=== PATIENT | female | born 2005 | race Caucasian/White ===

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

== ENCOUNTER 2023-01-02 18:12 | Emergency (ER) | payer OTHER, SELFPAY ==
[2023-01-02 18:20] VITALS: BP 138/79; PULSE 127; RESP 20; TEMP 37.4; O2SAT 100
--- NOTE | 2023-01-02 18:42 | ED.GENADULT ---
HPI - General Adult General Chief complaint: Dizziness Stated complaint: Dizzy spells History of Present Illness HPI narrative: Patient presents with a history of anxiety and has have been trouble with anxiety the last 2 days. Patient states she was on medication while she was but she stopped taking it at the end of her . Patient denies any intentions to hurt herself no shortness of breath no chest pain. Related Data Home Medications Medication Instructions Recorded Confirmed norethindrone 1.5 mg-ethinyl See Rx Instructions .Route .COMPLEX 01/02/23 01/02/23 estradiol 30 mcg(21)/iron 75 mg(7) tablet (Keiko Fe 1.5/30 (28)) Allergies Allergy/AdvReac Type Severity Reaction Status Date / Time No Known Allergies Allergy Verified 01/02/23 18:39 Review of Systems Review of Systems: CONSTITUTIONAL: Denies fever, chills, or sweats. EYES: Denies visual changes, redness, or discharge. ENT: Denies rhinorrhea, congestion, sore throat, or otalgia. CARDIOVASCULAR: Denies chest pain, palpitations, or edema. RESPIRATORY: Denies cough or dyspnea. GASTROINTESTINAL: Denies abdominal pain, nausea, vomiting, or diarrhea. GENITOURINARY: Denies dysuria or hematuria. SKIN: Denies rash or itching. MUSCULOSKELETAL: Denies back pain, joint pain, or myalgia. NEUROLOGIC: Denies headache, numbness, or weakness. PSYCHIATRIC: Denies anxiety or depression. [facility] Past Medical History Medical History (Updated 01/02/23 @ 18:44 by YOVANA Lazaro) No acute medical problems Surgical History Surgical History No pertinent past surgical history Family History Family History Mother Family history non-contributory Other No acute medical problems Social History Social History (Updated 10/11/21 @ 18:54 by YOVANA Rhodes, ) Smoking status: Never smoker Second hand tobacco smoke exposure: No Alcohol intake: never Substance use: never Living arrangements: with family Gender identity (if verbalized by the patient): Female Sexual Orientation (if Verbalized by the Patient): Straight or Heterosexual Spiritual care concerns: Yes (Would like to have element burner visit) Comments At time of signature, agree with nursing past medical, surgical, social and family history. There is no relevant family history pertinent to the presenting complaint Exam Narrative: GENERAL: Well-appearing, well-nourished, and in no acute distress. HEAD: Normocephalic, atraumatic. EYES: PERRLA and EOMI. ENT: Nares clear, no rhinorrhea or epistaxis. Mucous membranes moist. NECK: Supple. CHEST: Clear to auscultation. No respiratory distress. HEART: Regular rate and rhythm. No murmur heard. Normal peripheral pulses. ABDOMEN: Soft, nontender, nondistended, normal active bowel sounds. EXTREMITIES: Normal range of motion. No edema. SKIN: Warm, dry, no rash. NEURO: No focal deficits. Alert and oriented x3. Deanna Coma Scale Eye Opening: Spontaneous 4 Deanna Coma Scale Motor: Obeys Commands 6 Deanna Coma Scale Verbal: Oriented 5 Deanna Coma Scale Total 15 Course Course Level of Care: Express Care Visit Vital Signs Vital signs: Vital Signs Temperature 37.4 C 01/02/23 18:20 Pulse Rate 127 H 01/02/23 18:20 Respiratory Rate 01/02/23 18:20 Blood Pressure 138/79 01/02/23 18:20 Pulse Oximetry 100 01/02/23 18:20 Oxygen Delivery Room Air 01/02/23 18:20 Temperature 37.4 C 01/02/23 18:20 Pulse Rate 127 H 01/02/23 18:20 Respiratory Rate 01/02/23 18:20 Blood Pressure 138/79 01/02/23 18:20 Pulse Oximetry 100 01/02/23 18:20 Oxygen Delivery Room Air 01/02/23 18:20 Medical Decision Making Vital Signs Vital Signs: Vital Signs Temperature 37.4 C 01/02/23 18:20 Pulse Rate 127 H 01/02/23 18:20 Respiratory Rate 01/02/23 18:20
== END 2023-01-02 18:20 | disposition home or self-care (01) ==
PROVIDERS: Emergency Provider Nurse Practitioner Family
DX: F41.9 Anxiety disorder, unspecified (principal)
CPT/HCPCS: 99213; G0463

== ENCOUNTER 2023-01-08 16:50 | Emergency (ER) | payer OTHER, SELFPAY ==
[2023-01-08 16:56] VITALS: BP 130/71; PULSE 108; RESP 18; TEMP 36.6; O2SAT 96
--- NOTE | 2023-01-08 17:15 | ED.EAR ---
HPI - Ear Problem General Chief complaint: Ear Stated complaint: Ear pain Time Seen by Provider: 01/08/23 17:05 Source: patient, RN notes reviewed and old records reviewed Mode of arrival: ambulatory Limitations: no limitations History of Present Illness HPI Narrative: 17 year old female accompanied by mother and daughter with complaints of intermittent left ear pain since yesterday, Patient reports no sinus congestion, sore throat,or cough or any other URI symptoms, denies any recent swimming or any ear discharge. Patient rates her pain 3/10 has not taken any OTC medication for her discomfort. Patient reports no known recent ill exposure. MD Complaint: ear pain Location: left ear Duration: intermittent Severity: mild Discharge from ear: Reports no Treatment prior to arrival: none Related Data Home Medications Medication Instructions Recorded Confirmed norethindrone 1.5 mg-ethinyl See Rx Instructions .Route .COMPLEX 01/02/23 01/02/23 estradiol 30 mcg(21)/iron 75 mg(7) tablet (Keiko Fe 1.5/30 (28)) Allergies Allergy/AdvReac Type Severity Reaction Status Date / Time No Known Allergies Allergy Verified 01/02/23 18:39 Review of Systems Review of Systems: CONSTITUTIONAL: Denies malaise, chills, sweats, or fever. EYES: Denies visual changes, redness, or discharge. ENT: Reports no rhinorrhea, congestion, sinus pain,positive for left otalgia no sore throat. CARDIOVASCULAR: Denies chest pain, palpitations, or edema. RESPIRATORY: Reports cough.? Denies dyspnea. GASTROINTESTINAL: Denies abdominal pain, nausea, vomiting, diarrhea SKIN: Denies rash or itching. MUSCULOSKELETAL: Denies myalgia. NEUROLOGIC: Denies headache. All systems reviewed & are unremarkable except as noted in HPI and below PMFSH Past Medical History Medical History (Updated 01/09/23 @ 10:08 by Meseert Jordan NP) Anxiety COVID-19 Ear infection Strep throat Surgical History Surgical History No pertinent past surgical history Family History Family History (Updated 01/09/23 @ 09:59 by Meseret Jordan NP) Mother Kidney disease, chronic, end stage on dialysis Social History Social History (Updated 10/11/21 @ 18:54 by Tray Irizarry, [facility], ) Smoking status: Never smoker Second hand tobacco smoke exposure: No Alcohol intake: never Substance use: never Living arrangements: with family Gender identity (if verbalized by the patient): Female Sexual Orientation (if Verbalized by the Patient): Straight or Heterosexual Spiritual care concerns: Yes (Would like to have eyeglass lens grinder visit) Comments At time of signature, agree with nursing past medical, surgical, social and family history. There is no relevant family history pertinent to the presenting complaint Exam Narrative: GENERAL: Well-appearing, well-nourished, and in no acute distress. HEAD: Normocephalic EYES: PERRLA, conjunctivae clear ENT: Nares clear, turbinates edematous and erythematous, clear discharge. Mucous membranes moist Left TM red and bulging..Right TM pearly freedman with dull light reflex bilaterally; no tragal tenderness. Oropharynx erythematous without lesions. Tonsils not enlarged and without exudate, no drooling, no hoarseness, no trismus, uvula midline. NECK: Supple. No lymphadenopathy CHEST: Clear to auscultation, breath sounds equal. No wheezing, rhonchi, rales, or stridor. No respiratory distress, speaks in full sentences.SAO2 96% on room air HEART: Regular rate and rhythm. No murmur heard. SKIN: Warm, dry, no rash. NEURO: Alert and oriented x3. PSYCH: Normal mood and affect Course Course Emergency Course: Patient is aware of diagnosis, understands and agrees to treatment plan.? Anticipatory guidance given.? Patient agrees to follow-up as directed and is aware of reasons to seek care at the emergency department. Portions of this femi
== END 2023-01-08 17:26 | disposition home or self-care (01) ==
PROVIDERS: Emergency Provider Registered Nurse; PCP Family Medicine
DX: H66.92 Otitis media, unspecified, left ear (principal); Z86.16 Personal history of COVID-19
CPT/HCPCS: 99213; G0463

== ENCOUNTER 2023-01-25 14:21 | Outpatient (CLI) | payer OTHER, SELFPAY ==
[2023-01-25 19:23] LABS: Hematocrit 43.2 % (37.0-47.0); Hemoglobin 13.9 g/dL (12.0-15.0); Mean Corpuscular HGB Conc 32.2 g/dl (32-36); Mean Corpuscular Hemoglobin 29.4 pg (26-34); Mean Corpuscular Volume 91.3 fl (80-100); Platelet Count Result 268 k/mm3 (150-375); Red Blood Count 4.73 M/mm3 (4.2-5.4); Red Cell Distribution Width 13.2 % (11.5-14.5); White Blood Count 5.4 K/mm3 (4.5-10.0)
[2023-01-25 19:52] LABS: Alanine Aminotransferase 22 U/L (6-35); Albumin Level 4.7 g/dL (3.7-5.6); Alkaline Phosphatase 62 U/L (45-116); Anion Gap 9 mmol/L (8-16); Aspartate Amino Transferase 46 U/L (14-36); Bilirubin,Total 0.4 mg/dL (0.2-1.3); Blood Urea Nitrogen 16 mg/dL (8-21); Calcium 9.6 mg/dL (8.9-10.7); Carbon Dioxide 26 mmol/L (22-30); Chloride 105 mmol/L (98-107); Estimated Glomerular Filt Rate > 60; Glucose 81 mg/dL (65-110); Potassium 4.3 mmol/L (3.4-5.0); Sodium 140 mmol/L (134-143)
== END 2023-01-25 14:22 | disposition home or self-care (01) ==
LOC: ANHBWCLAB 14:23
PROVIDERS: PCP Nurse Practitioner Adult Health; Visit Provider Nurse Practitioner Adult Health
DX: D64.9 Anemia, unspecified (principal); F41.9 Anxiety disorder, unspecified
CPT/HCPCS: 36415; 80053; 84443; 85027

== ENCOUNTER 2023-02-08 16:01 | Emergency (ER) | payer OTHER, SELFPAY ==
[2023-02-08 16:06] VITALS: BP 129/74; PULSE 86; RESP 20; TEMP 37; O2SAT 100
--- NOTE | 2023-02-08 16:38 | ED.ABDPAIN ---
HPI - Abdominal Pain General Chief Complaint: Abdominal Pain Stated Complaint: Flank Pain Time Seen by Provider: 02/08/23 16:39 Source: patient Mode of arrival: ambulatory Limitations: no limitations History of Present Illness HPI narrative: 17 yo F presents with c/o anxiety, upset stomach for pain several days. Pt recently started buspar, prozac for anxiety. States medications were helping. Now going through somethings with fiance and having a lot of anxiety again . States when she is anxious sides of ABD hurt. No abdominal pain at this time. Want to make sure my breathing is ok . Deneis SOB. No URI symptoms. Denies urinary symptoms. Having normal BMs. All systems reviewed and negative except as noted above. Related Data Home Medications Medication Instructions Recorded Confirmed norethindrone 1.5 mg-ethinyl See Rx Instructions .Route .COMPLEX 01/02/23 02/08/23 estradiol 30 mcg(21)/iron 75 mg(7) tablet (Keiko Fe 1.5/30 (28)) Allergies Allergy/AdvReac Type Severity Reaction Status Date / Time No Known Allergies Allergy Verified 02/08/23 16:34 Review of Systems Review of Systems: CONSTITUTIONAL: Denies fever, chills, or sweats. EYES: Denies visual changes, redness, or discharge. ENT: Denies rhinorrhea, congestion, sore throat, or otalgia. CARDIOVASCULAR: Denies chest pain, palpitations, or edema. RESPIRATORY: Denies cough or dyspnea. GASTROINTESTINAL: Reports abdominal pain. Denies nausea, vomiting, or diarrhea. GENITOURINARY: Denies dysuria or hematuria. SKIN: Denies rash or itching. MUSCULOSKELETAL: Denies back pain, joint pain, or myalgia. NEUROLOGIC: Denies headache, numbness, or weakness. PSYCHIATRIC: Reports anxiety. Denies depression. All other systems reviewed are negative, except as documented in HPI. [facility] Past Medical History Medical History (Updated 02/08/23 @ 16:47 by Tish Paula NP) Anxiety COVID-19 Ear infection Strep throat Surgical History Surgical History No pertinent past surgical history Family History Family History (Updated 01/25/23 @ 13:38 by Vale Schreiber MA) Mother Kidney disease, chronic, end stage on dialysis Father Hypertension Depression Asthma Grandparent No problems noted. Grandparent Cancer Social History Social History (Updated 01/25/23 @ 13:39 by Vale Schreiber MA) Smoking status: Never smoker Second hand tobacco smoke exposure: No Alcohol intake: never Substance use: never Lack of Transportation: No Lack of Food: Sometimes True Current Housing: I Have Housing Concerned About Future Housing: No Difficulty Paying Gas/Electric Bills: No Difficulty Paying for Meds: No Currently Unemployed: No Education: High School Diploma/GED Difficulty w/ Childcare or Family Care: No Living arrangements: with family Gender identity (if verbalized by the patient): Female Sexual Orientation (if Verbalized by the Patient): Straight or Heterosexual Spiritual care concerns: Yes (Would like to have racquet maker visit) Agree to blood products: Yes Comments At time of signature, agree with nursing past medical, surgical, social and family history. There is no relevant family history pertinent to the presenting complaint. Exam Narrative: GENERAL: This is a well-nourished, well-developed patient, in no apparent distress. HEAD: normocephalic, atraumatic. EYES: PERRL. Sclera clear/white. Vision is grossly intact. EARS: External ears normal NOSE: External nose normal NECK: Neck supple, non-tender without lymphadenopathy, masses or thyromegaly. CARDIOVASCULAR: Regular rate and rhythm without murmurs, gallops, or rubs. RESPIRATORY: Clear to auscultation. Breath sounds equal bilaterally. No wheezes, rales, or rhonchi. GASTROINTESTINAL: Abdomen soft, non-tender, nondistended. Bowel sounds are active. No hepato-splenomegaly, or palpable masses. No
== END 2023-02-08 16:49 | disposition home or self-care (01) ==
PROVIDERS: Emergency Provider Nurse Practitioner Family; PCP Family Medicine
DX: F41.9 Anxiety disorder, unspecified (principal); R10.9 Unspecified abdominal pain
CPT/HCPCS: 99211; G0463

== ENCOUNTER 2023-03-05 19:49 | Emergency (ER) | payer OTHER, SELFPAY ==
--- NOTE | 2023-03-05 20:01 | ED.EAR ---
HPI - Ear Problem General Chief complaint: Ear Stated complaint: Ear Pain/Sinus Congestion Time Seen by Provider: 03/05/23 20:03 Source: patient Mode of arrival: ambulatory Limitations: no limitations History of Present Illness HPI Narrative: Yamile is a 17-year-old female patient presenting to the clinic today with complaints of bilateral ear pain and sinus congestion times 2-3 days. States she seen her PCP and they did a strep and a COVID test on her and they were negative. She is concerned more about an ear infection as they did not check her ears at that time. She denies any fever or chills. She denies any body aches. Related Data Allergies Allergy/AdvReac Type Severity Reaction Status Date / Time No Known Allergies Allergy Verified 03/05/23 19:59 Review of Systems Review of Systems: Pertinent positives per HPI. Patient denies any fever, chills, rash, headache, visual changes, dizziness, cough, runny nose, sore throat, shortness of breath, chest pain, palpitations, nausea, vomiting, diarrhea, constipation, abdominal pain, or any urinary issues. PMFSH Past Medical History Medical History Anxiety COVID-19 Ear infection Strep throat Surgical History Surgical History No pertinent past surgical history Family History Family History Mother Kidney disease, chronic, end stage on dialysis Father Hypertension Depression Asthma Grandparent No problems noted. Grandparent Cancer Social History Social History Smoking status: Never smoker Second hand tobacco smoke exposure: No Alcohol intake: never Substance use: never Lack of Transportation: No Lack of Food: Sometimes True Current Housing: I Have Housing Concerned About Future Housing: No Difficulty Paying Gas/Electric Bills: No Difficulty Paying for Meds: No Currently Unemployed: No Education: High School Diploma/GED Difficulty w/ Childcare or Family Care: No Living arrangements: with family Gender identity (if verbalized by the patient): Female Sexual Orientation (if Verbalized by the Patient): Straight or Heterosexual Spiritual care concerns: Yes (Would 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 There is no relevant family history pertinent to the patient complaint. Exam Narrative: General: Well-developed, well nourished, in no apparent distress Head: Normocephalic, atraumatic Eyes: Pupils equally round and reactive to light bilaterally, EOM intact, sclera and conjunctive clear, no discharge, lids normal Ears: TMs intact and congested with fluid noted behind the TM, ear canals clear, no drainage, grossly hearing normal. Nose: Nares patent, clear nasal discharge, no inflammation, no sinus tenderness. Mouth: Oropharynx without lesions or masses, good dentition, MMM. Postnasal drip Neck: Supple, trachea midline, no enlargement of anterior or posterior cervical nodes, no thyroid masses or goiter palpable. Cardio: Regular rate and rhythm, s1 and s2 normal, no murmur appreciated. Resp: Clear to auscultation bilaterally anteriorly and posteriorly, no rhonchi, rales, wheezing or rubs Course Course Emergency Course: Portions of this record may have been created with voice recognition software. Level of Care: Express Care Visit Vital Signs Vital signs: Vital signs reviewed Medical Decision Making MDM Narrative Medical decision making narrative: At the time of visit patient is resting comfortably on the exam table. I suspect patient has URI/serous otitis. Prescription for prednisone was sent to the pharmacy. Supportive measure
[2023-03-05 20:03] VITALS: BP 131/75; PULSE 115; RESP 16; O2SAT 99
== END 2023-03-05 20:13 | disposition home or self-care (01) ==
PROVIDERS: Emergency Provider Nurse Practitioner Family; PCP Family Medicine
DX: J06.9 Acute upper respiratory infection, unspecified (principal); H65.03 Acute serous otitis media, bilateral
CPT/HCPCS: 99213; G0463

== ENCOUNTER 2024-11-20 15:06 | Observation (INO) | payer OTHER, SELFPAY ==
--- NOTE | 2024-11-20 15:06 | OBADM ---
This patient, Yamile Hunter, admitted to the OB room Labor/Delivery/Recovery 105 for observation. Patient/family oriented to hospital policies and general routines including ID bracelet, bed and alarms, visiting hours, pain management, procedures, bathroom and other care routines, personal items, smoking policy, room service/diet, and visiting hours. Patient/Family are encouraged to report perceived risks to care and to ask questions if they do not understand what they are told or what they should do.
[2024-11-20 16:05] LABS: Add Urine Microscopic? NO; Appearance Urine Clear (Clear); Bilirubin Urine Negative (Negative); Blood Urine Negative (Negative); Color Urine Yellow (Yellow); Glucose Urine UA Negative (Negative); Ketones Urine Trace mg/dL (Negative); Leukocyte Esterase Ur Negative LEU/UL (Negative); Nitrate Urine Negative (Negative); Protein Urine Negative (Negative); Specific Grav Ur 1.014 (1.001-1.035); Urobilinogen Urine 0.2 mg/dL (<2.0)
--- OUTSIDE RECORDS SUMMARY | 2024-11-20 16:51 | XMS_ITS | Data Portability ---
Author Organization [facility] Address [address] [place] [address] [place] [address] Care Team Providers Care Invoice Checker Name Role Phone STEPHANIE MATUTE Primary Care Provider [phone] Assessment Encounter Date Assessment Date Assessment LastModified by Organization Details LastModified Time 10/25/2024 10/25/2024 Patient is ___weeks . Discussed plan. [email or web address] Not available 10/25/2024 14:21:48 11/01/2024 11/01/2024 Patient is 34___weeks . Discussed plan. Not available 11/02/2024 16:28:14 Plan of Treatment Reminders Order Date Submit Date Provider Last Modified By Organization Details Last Modified Time Details Appointments NST 2024 10:30A M NST SCHEDULE Not available Not available Not available OB ROUTINE 2024 11:00A M ED BuiM Not available Not available Not available NST 2024 10:30A M NST SCHEDULE Not available Not available Not available POST 2024 11:00A M Jae Benjamin CNM Not available Not available Not available NST 2024 10:30A M NST SCHEDULE Not available Not available Not available OB ROUTINE 2024 11:00A M Jae Benjamin CNM Not available Not available Not available Lab None recorded . Referral None recorded . Procedures None recorded . Surgeries None recorded . Imaging US, obstetri c, follow-u p 2024 025 [facility], [address], [address], [place], [address], 11/01/2024 21:14:02 US, obstetri c, follow-u p 2024 025 [email or web address] [facility], [address], [address], [place], [address], 10/11/2024 19:59:23 Medication Orders None recorded . Patient TargetsNo targets recorded. Patient InstructionsNo instructions recorded. Reason for Referral None Reported. Results Created Date Observation Date Name Description Value Unit Range Abnormal Flag Note LastModifiedBy Organization Detail LastModifiedTime 09/16/1909/15/2024 GTT - SANDIPA BRITTANY LANGSTON OB glucose, 1 hour screen 113 mg/dL 70-[address] [facility] (Lab) [address], [place], [address], 09/16/2024 11:55:57 09/16/1909/15/2024 HIV 1/2 ANTIG EN/AN TIBOD Y, REFLE X CONFI RMATI ON HIV antigen/anti body Nonrea ctive nonrea ctive HIV-1 antig en and HIV-1 /HIV- 2 antib odies were not detec jo. No labor atory evide nce of HIV infec tion. Not Available [facility] (Lab) [address] , [place], [address], 09/16/2024 11:55:57 09/16/1909/15/2024 HEMAT OCRIT (HCT) HCT 34.5 % (based on docume nted legal sex) 34.0-[address] [facility] (Lab) [address] [place], [address], 09/16/2024 11:55:58 09/16/1909/15/2024 HEMOG LOBIN (HGB) HGB 10.9 g/dL (based on docume nted legal sex) 11.6-[address] [facility] (Lab) [address] [facility], [place], [address], 09/16/2024 11:55:58 09/16/19 25 09/15/2024 RPR SCREE N, REFLE X TITER /CONF IRMAT ION RPR qualitative Nonrea ctive nonrea ctive Not Available [facility] (Lab) [address], [place], [address], 09/16/2024 11:55:58 11/16/19 25 11/15/2024 CULTU RE: GROUP B STREP SCREE N, REFLE X SUSCE PTIBI LITY result report SEE RESULT S BELOW Test: Cultu re: Group B Strep , Refle x Susce ptibi lity ([facility]/ [facility] ) Speci men Sourc e: Vagin a/Rec krystle Speci men Type: Vagin al/Re ctal Speci men Date: 2024 1630 Resul t Date: 2024 1425 Resul t Statu s: Final resul t Abnor mal: No Resul ting Lab: [facility] [address] [facility] [address] Tel: CULTU RE ----- ----- ----- --- No Group B strep isola jo at 2 days (martita ctive broth enhan cemen t) Not Available [facility] (Lab) [address] [facility] [facility], [place], [address], 11/18/2024 15:29:51 10/12/19 25 10/11/2024 , clark tric follo w-up No observ ation record ed. [facility] [address], [place], [address], 10/11/2024 18:22:22 10/12/19 25 10/11/2024 US, obste tric, follo w-up No observ ation record ed. [email or web address] [address] [address], [place], [address], 11/02/2024 11:49:10 11/02/19 25 11/01/2024 US, obste tric, follo w-up No observ ation record ed. [email or web address] [facility] [address], [place], [address], 11/01/2024 17:24:56 11/02/19 25 11/01/2024 US, obste tric, follo w-up No observ ation record ed. [email or web address] [address], [place], [address], 11/16/2024 18:47:49 Result Notes None recorded. Problems Name Problem SNOMED Code Status Onset Date Resolution Date Notes Provider Name and Address Organization Details Recorded Time Pregnanc y 47893691 Completed 202103/19/2022 Cindy ferguson, [facility] 5 12:15:52 Anxiety disorder 075372941 Completed On Zoloft - Check EPDS 08/21 Tish martinez [facility], [facility] 2 18:25:21 Pregnanc y 65621959 Active 2024 Cindy Cornelius [facility], [facility] 5 12:15:52 Obesity 923766677 Active BMI 37 started on bASA Lashanda Chamorro [facility], [facility] 5 13:56:06 Headache 66707202 Active ok for excedrin tension Jae Benjamin CNM [address], [place], [address], [facility] 5 12:29:03 Anxiety 73421536 Active buspiron e, fluoxeti ne Jae Benjamin CNM [address], [place], [address], [facility] 5 12:32:32 COVID-19 561231006 Active Cindy ferguson, [facility] 5 14:38:31 COVID-19 053444368 Active Cindy ferguson, [facility] 5 14:38:31 Problem Notes None recorded. Procedures Surgical History Date Name Laterality Status Provider Name and Address Organization Details Recorded Time 06/22/2024 Date of Last Pap Smear completed Cindy Cornelius [facility] 06/22/2024 12:12:18 Imaging Results None recorded. Procedure Notes None recorded. Medical Equipment None Reported. Allergies No known drug allergies Medications Name Sig Start Date Stop Date Status Note LastModified by Organization Details LastModified Time buspirone 5 mg tablet TAKE 2 TABS BY MOUTH TWICE A DAY NEEDED FOR ANXIETY 06/22 completed Not Available Not Available Not Available Vitamin B-6 25 mg tablet TAKE 1 TABLET BY MOUTH EVERY 6 TO 8 HOURS NEEDED 09/15 completed Not Available Not Available Not Available ibuprofen 800 mg tablet 06/27 completed Not Available Not Available Not Available Lidocaine Viscous 2 % mucosal solution 10/16 completed Not Available Not Available Not Available aspirin 81 mg tablet,de layed release TAKE 1 TABLET BY MOUTH EVERY DAY active Not Available Not Available No t Available citalopra m 20 mg tablet 06/27 completed Not Available Not Available Not Available oseltamiv ir 75 mg capsule TAKE 1 CAPSULE BY MOUTH TWICE A DAY FOR 5 DAYS 04/23 completed Not Available Not Available Not Available buspirone 10 mg tablet TAKE 1 TABLET BY MOUTH TWICE A DAY 06/22 completed Not Available Not Available Not Available fluoxetin e 20 mg capsule TAKE 1 CAPSULE BY MOUTH EVERY DAY FOR 90 DAYS active Not Available Not Available No t Available fluticaso ne propionat e 50 mcg/actua tion nasal spray,alma pension 06/27 completed Not Available Not Available Not Available sertralin e 50 mg tablet Take 1 tablet every day by oral route. active Not Available Not Available No t Available amoxicill in 875 mg-potass ium clavulana te 125 mg tablet TAKE 1 TABLET BY MOUTH TWICE A DAY FOR 7 DAYS 06/22 completed Not Available Not Available Not Available buspirone 15 mg tablet TAKE 1 TABLET BY MOUTH TWICE A DAY active Not Available Not Available No t Available bupropion HCl XL 150 mg 24 hr tablet, extended release TAKE 1 TABLET BY MOUTH EVERY DAY IN THE MORNING FOR 30 DAYS 06/22 completed Not Available Not Available Not Available Junel FE 06/26 () 1 mg-20 mcg (21)/75 mg (7) tablet Take one pill by mouth daily 06/27 completed Not Available Not Available Not Available Vitamin active Not Available Not Available Not Available Allergy Relief-D (cetirizi ne) 5 mg-120 mg tablet,ex tended release 06/27 completed Not Available Not Available Not Available Lo Loestrin Fe 1 mg-10 mcg (24)/10 mcg (2) tablet TAKE 1 TABLET BY MOUTH EVERY DAY 10/18 completed Insuranc e denied PA Not Available Not Available Not Available Keiko Fe .11/03 () 1.5 mg-30 mcg (21)/75 mg (7) tablet Take 1 tablet every day by oral route. 06/22 completed Not Available Not Available Not Available Vitals Date Recorded Body weight Body mass index (BMI) Body height Systolic blood pressure Diastolic blood pressure Provider Name and Address Organization Details Last Updated DateTime 10/11/2024 93547.54 429 g 37.2 kg/m2 162.56 cm 105 mm[Hg] 70 mm[Hg] Cindy Cornelius [facility] 5 18:04:35 Date Recorded Body weight Body mass index (BMI) Body height Systolic blood pressure Diastolic blood pressure Provider Name and Address Organization Details Last Updated DateTime 10/25/2024 26822.72 903 g 37.6 kg/m2 162.56 cm 112 mm[Hg] 74 mm[Hg] Cindy Cornelius [facility] 5 14:22:30 Date Recorded Body weight Body mass index (BMI) Body height Systolic blood pressure Diastolic blood pressure Provider Name and Address Organization Details Last Updated DateTime 11/01/2024 43795.72 903 g 37.6 kg/m2 162.56 cm 102 mm[Hg] 71 mm[Hg] Cindy Cornelius [facility] 5 16:13:10 Date Recorded Body height Body mass index (BMI) Body weight Systolic blood pressure Diastolic blood pressure Provider Name and Address Organization Details Last Updated DateTime 11/15/2024 162.56 cm 38.6 kg/m2 985546.2 8 g 123 mm[Hg] 71 mm[Hg] KALIN Enedina [facility] 5 17:00:32 Social History Question Answer Notes LastModified by Organizat ion Details LastModified Time Tobacco Smoking Status Never Smoker Shailesh Mel ferguson, [facility] 10/16/2021 14:45:03 Do You Have An Advance Directive? No [email or web address] Information n ot available 07/24/2021 Are You Blind Or Do You Have Difficulty Seeing? No [email or web address] Information n ot available 06/27/2021 What Is Your Level Of Caffeine Consumption? Occasional [email or web address] Information not available 06/27/2021 How Much Tobacco Do You Chew? None Information not available 07/24/2021 In The 14 Days Before Symptom Onset, Have You Had Close Contact With A Laboratory-confirm ed COVID-19 While That Case Was Ill? No [email or web address] Information n ot available 06/27/2021 In The 14 Days Before Symptom Onset, Have You Had Close Contact With A Person Who Is Under Investigation For COVID-19 While That Person Was Ill? No [email or web address] Information not available 06/27/2021 Have You Been To An Area Known To Be High Risk For COVID-19? No [email or web address] Information not available 06/27/2021 Are You Deaf Or Do You Have Serious Difficulty Hearing? No [email or web address] Information not available 06/27/2021 What Type Of Diet Are You Following? REGULAR [email or web address] Information n ot available 06/27/2021 What Is The Highest Grade Or Level Of School You Have Completed Or The Highest Degree You Have Received? [id number] [email or web address] Information not available 07/24/2021 Are There Any Guns Present In Your Home? No [email or web address] Information not available 07/24/2021 Have You Ever Been Counseled For Unhealthy Alcohol Use? No [email or web address] Information not available 10/16/2021 Do You Use Protection During Sex? No [email or web address] Information not available 07/24/2021 Do You Use Your Seat Belt Or Car Seat Routinely? Yes [email or web address] Information not available 06/27/2021 Do You Have Smoke And Carbon Monoxide Detectors In Your Home? Yes [email or web address] Information not available 06/27/2021 How Much Tobacco Do You Smoke? No [email or web address] Information not available 07/24/2021 Do You Use Sunscreen Routinely? Yes [email or web address] Information not available 06/27/2021 Has Tobacco Cessation Counseling Been Provided? No [email or web address] Information not available 10/16/2021 Have You Used IV Drugs? No [email or web address] Information not available 07/24/2021 Do You Have Difficulty Walking Or Climbing Stairs? No [email or web address] Information not available 10/16/2021 Sex: Unknown Functional Status Question Answer Note LastModified by Organizat ion Details LastModified Time Do you use any illicit or recreational drugs? No Information not available 06/27/2021 Do you or have you ever used any other forms of tobacco or nicotine? No Information not available 10/16/2021 What is your level of alcohol consumption? None [email or web address] Information not available 07/19/2024 Are you able to walk? [email or web address] Information not available 06/27/2021 Are you able to care for yourself? Yes [email or web address] Information n ot available 10/16/2021 Do you have difficulty dressing or bathing? No [email or web address] Information not available 10/16/2021 What is your exercise level? Occasional [email or web address] Information not available 06/27/2021 Mental Status Question Answer Note LastModified by Organization D etails LastModified Time Do you feel stressed (tense, restless, nervous, or anxious, or unable to sleep at night)? [id number] [email or web address] Information not available 07/24/2021 Family History Relationship Description Onset Age of this Age Resolved Age Notes LastModified by Organization Details LastModified Time Maternal Grandmother Asthma [email or web address] Not available 2019 14:14:31 Mother Kidney disease [email or web address] Not available 07/24 15:54:23 Father Anxiety disorder [email or web address] Not available 07/24 15:54:23 Sister Anxiety disorder [email or web address] Not available 07/24 15:54:23 Medical History Condition Response Allergies (Food, seasonal, environmental ) Y Other N Breast Cancer N Drug/Latex Allergies/Reactions N Blood Transfusion N Lung Disease N Dermatologic Disorders N Defects or Inherited Disease N Breast Problem N Gestational Diabetes N Hematologic disorders N Anesthesia Complications N History of STI N Deep Vein Thrombosis N Polycystic ovary syndrome N Anxiety Disorder Y Autoimmune disease N Arthritis N Infertility N Polyps N Acid Reflux (GERD) N History of abnormal pap N Cancer N Stroke N Varicosities N Neurologic/Epilepsy N Endometriosis N High Cholesterol N Headaches N Fibromyalgia N Kidney Disease N Heart Problems N Kidney or Bladder Problems N Thyroid Problems N GI Problems N Eating Disorder N Anemia N Art (IVF or FET) N Psychiatric Illness Y Ovarian Cancer N Diabetes N Pulmonary (TB, Asthma) N Hepatitis/Liver Disease N No Past Medical History N Eczema N Urinary Tract Infection N Abuse/Domestic Violence N Asthma N Trauma/Violence N Depression/ depression Y Heart Disease N Pre-Eclampsia N Hypertension N Osteoporosis N Thrombophilias N Gynecological History Statement/Question Response Abnormal Pap N Date of Last Mammogram Date of LMP 03/06/2024 On BCP's at Conception? N N Was last menstrual period normal Y STIs/STDs N HPV Vaccine Y Duration of Flow (days) 5 Current Control Method Age at First Child 16 Frequency of Cycle (Q days) 28 Most Recent Bone Density Sexually Active? Y Age of first menstrual cycle 11 Date of Last Pap Smear 06/22/2024 Sexual Problems? 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 Pt would like to start ocp. She is aware of the risks and benefits. She does not have any medical condition that is contraindi cated with the use of estrogen containing control. Pt will start her pills on the first wednesday following the start of her period. She is aware it is not effective for control the first month. She is also aware of the importance of taking at the same time every day. Encouraged use of condoms as the pill does not protect against STD's. Will return in 3 months for med check. Consent was read and signed. Pt verbalized understand ing. -Patient wishes to start an OCP to help with cramping during her periods, discussed side effects and risk associated with taking an OCP -Patient is not sexually active, discussed back up method needed for 4 weeks if she does become sexually active during the next 4 weeks Samples of lo loestrin x 3mos given RTO x 3mos Time spent in visit is a total of 26 mins with at least 50% of visit consisting of counseling and review of plan of care. [id number] FLORIDA [facility] [address],[place] [address] 07/25/2020 12:00:26 07/25/2020 13:26:01 Contraception care management 221430904 Z30.9 Patient is here today for a medicaton check of control. She voices goals of therapy have been met with use of this therapy. She denies neg side effects. She is eating, drinking, sleeping well; moods are stable & periods are well regulated. Wishes to continue this method of BC. Appropriat e to continue this medication . [id number] [facility] [address],[place] [address] 06/27/2021 13:49:51 06/27/2021 15:01:33 Amenorrhea 33740765 N91.2 Anxiety in 758 6782324 9109 F41.9 [id number] Kvng Powell MD [facility] [address],[place] [address] 06/27/2021 13:48:13 06/27/2021 14:42:20 [id number] Kvng Powell MD [facility] [address] [place] [address] 07/24/2021 15:04:55 07/25/2021 11:36:09 Uncertain viability of 777148363 O36.80X9 Z3A.12 [id number] Kvng Powell MD [facility] [address],[place] [address] 07/24/2021 15:09:13 07/25/2021 11:37:12 Routine care 366799556 Z34.01 [id number] Jae Benjamin, [facility] [address],[place] [address] 08/21/2021 12:27:18 08/21/2021 13:26:15 Routine care 364474787 Z34.92 [id number] Kvng Powell MD [facility] [address],[place] [address] 08/21/2021 12:26:59 08/21/2021 13:12:52 [id number] MD Mariposa Cormier [address],[place] [address] 09/18/2021 14:06:47 09/18/2021 16:16:03 Routine care 401920199 Z34.01 [id number] Kvng Powell MD [facility] [address],[place] [address] 09/18/2021 14:07:03 09/18/2021 15:09:58 screening for malformation 001836664 Z36.3 [id number] Kvng Powell MD [facility] [address],[place] [address] 10/16/2021 14:41:41 10/16/2021 16:56:02 condition affecting obstetrical care of mother 316616949 O35.8XX0 Z3A.24 [id number] MD Mariposa Cormier [address],[place] [address] 10/16/2021 14:44:49 10/16/2021 16:00:19 Routine care 257506233 Z34.01 [id number] ED [facility] [address],[place] [address] 11/14/2021 12:46:48 11/14/2021 13:47:49 Routine care 529222564 Z34.92 [id number] Kvng Powell MD [facility] [address],[place] [address] 11/27/2021 17:27:36 11/28/2021 11:06:46 Routine care 306824020 Z34.01 [id number] Kvng Powell MD [facility] [address],[place] [address] 12/12/2021 14:38:02 12/12/2021 15:43:52 Routine care 152725312 Z34.01 [id number] ED [facility] [address],[place] [address] 12/26/2021 09:52:19 12/26/2021 10:31:25 Routine care 737522189 Z34.92 [id number] ED [facility] [address],[place] [address] 01/09/2022 15:35:40 01/09/2022 15:58:52 Routine care 782424407 Z34.92 [id number] ED [facility] [address],[place] [address] 01/16/2022 11:52:04 01/19/2022 16:29:07 Routine care 901199081 Z34.92 [id number] ED [facility] [address],[place] [address] 01/23/2022 11:12:54 01/23/2022 11:36:31 Routine care 965402548 Z34.92 [id number] Jae Benjamin CNM [facility] [address],[place] [address] 03/18/2022 12:42:36 03/18/2022 14:23:16 care 454347816 Z39.2 normal pp exam Contracept ion care management 861065676 Z30.9 start with next cycle, one month for effectiven ess, risk of ocps and blood clot, stroke, mi, consent signedf.u 6 mo wwe [id number] DE [facility] [address],[place] [address] 10/02/2022 15:08:16 10/02/2022 15:56:15 Gynecologic examination 70699050 Z01.419 restart ocp [id number] Kvng Powell MD [facility] [address],[place] [address] 06/22/2024 10:52:18 06/22/2024 11:35:24 screening 806610078 Z36.87 Z3A.16 [id number] ED [facility] [address] [address] 06/22/2024 10:55:24 06/22/2024 12:39:08 Routine care 870427828 Z34.92 Gestation period, 15 weeks 5275366 Z3A.15 Gynecologi c examination 32681605 Z01.419 Z11.3 Z11.8 restart ocp Venereal d isease screening 861699181 Z11.3 [id number] ED [facility] [address],[place] [address] 07/19/2024 14:20:37 07/19/2024 14:47:08 Gestation period, 19 weeks 44184029 Z3A.19 [id number] Kvng Powell MD [facility] [address] [place] [address] 08/16/2024 13:51:28 08/16/2024 15:05:39 screening for malformation 562535093 Z36.3 Z3A.23 [id number] ED [facility] [address] [place] [address] 08/16/2024 13:52:35 08/16/2024 16:15:48 Gestation period, 23 weeks 35902250 Z3A.23 [id number] Jae Benjamin [facility] [address],[place] [address] 09/15/2024 10:41:36 09/15/2024 11:34:40 Gestation period, 27 weeks 25789231 Z3A.27 [id number] Jae Benjamin [facility] [address],[place] [address] 09/26/2024 11:57:04 09/26/2024 12:49:00 Gestation period, 29 weeks 16429712 Z3A.29 [id number] Kvng Powell MD [facility] [address],[place] [address] 10/11/2024 16:27:12 10/12/2024 06:56:48 Suspected damage from viral disease in mother 203642483 O35.3XX0 O99.213 Z3A.31 [id number] ED [facility] [address],[place] [address] 10/11/2024 16:28:14 10/12/2024 09:35:12 Gestation period, 31 weeks 94053647 Z3A.31 [id number] ED [facility] [address],[place] [address] 10/25/2024 14:16:14 10/25/2024 14:47:14 Gestation period, 33 weeks 36422752 Z3A.33 [id number] Kvng Powell MD [facility] [address],[place] [address] 11/01/2024 15:03:22 11/01/2024 15:42:10 History of SARS-CoV-2 4320886516 81351948 Z86.16 Z3A.34 [id number] ED [facility] [address],[place] [address] 11/01/2024 15:05:02 11/02/2024 16:51:40 Gestation period, 34 weeks 28432733 Z3A.34 [id number] GABI BRAVO MD [facility] [address] [address] 11/15/2024 16:52:22 11/15/2024 17:27:10 care status 001586434 Z34.83 Health Concerns Section Related Observation LastModified by Organization Detai ls LastModified Time None Recorded Concern Status LastModified by Organization Details LastModified Time None Recorded Advance Directives Directive N: Payers Insurance Date Sequence Insurance Name Policy Number Policy Jenkins Covered Member ID Jenkins Member ID Guarantor Name 08/07/2024 PAYMENT PLAN Yamile Agney 10/03/2021 1 [place] [id number] Garrett Hunter [id number] Yamile Agney 11/18/2021 PAYMENT PLAN Yamile Agney 09/29/2022 1 [place] [id number] Garrett Hunter [id number] Yamile Agney 03/20/2022 PAYMENT PLAN Yamile Agney 12/28/2022 PAYMENT PLAN Yamile Agney 11/19/2024 1 [facility] Garrett Hunter [id number] Yamile Dale OBGysocorro Episode Ob Episode Information Episode Created Date Number of Fetuses Patient Bloodtype Patient rh Status Prepregnancy Weight lbs Domestic Partner Domestic Partner Phone Father Name Marketing Finance Manager Status 07/24/19 22 1 A Positive 149 PERICO CLOSED Fetus Data First Name Last Name Admitted to NICU Weight (g) Sex Living Outcome Pediatric Complications Fetus ID Race Codes Race Delivery Type 3373.59 05 F true Full Term [id number] Vaginal Delivery Problems Problem Notes Problem Name Start Date End Date Resolution Snomed Code Not e Anxiety disorder 837791823 On Zoloft - Check EPDS 08/21 Júnior Calculation Initial Júnior Date Initial Exam Date Initial Exam Provider Initial Ultrasound Date Last Menstrual Period Date Ultra Sound Weeks Gestation 02/04/2022 07/24/2021 06/27/2021 04/30/2021 7 Eighteen To Twenty Week Júnior Update Ultra Sound Date Fundal Height At Umbil Quickening Date Ultra Sound Latest Weeks Gestation Final Júnior Confirmed By Final Júnior Confirmed Date Final Júnior Date Ultra Sound Latest Days Gestation 0 [email or web address] 07/24/2021 02/05/20 22 0 Pre- Flowsheet Flowsheet Date 07/24/2021 Velasquez Score Blood Edema Fundus Height Fundus Units Glucose Ketones Leukocytes Nitrite Labor Signs Protein Cervic Dilation Cervic Effacement Cervic Station neg none 12 trace Type Weight in lbs Pre/Post Dialysis Refused Weight 149.084296705389 BP Diastolic BP Location Tested BP Systolic BP Type 80 123 Fetus Heart Rate Present A 150 Fetus Movement A No Comments PATIENT IS HAVING SOME NAUSE A AND VOMITING. This patient is a 16-year-old 1 at 12 weeks gestation who presents for initial care. She is on vaccinated. She is having some nausea vomiting but refused any further treatment or support for that problem. She is on vaccinated. She was given recommendations on COVID vaccine, flu vaccine, Tdap update. We discussed care in detail. She is likely not to do genetic testing. She was unresponsive to offers of genetic testing. Asked no questions. To begin routine care. Flowsheet Date 08/21/2021 Velasquez Score Blood Edema Fundus Height Fundus Units Glucose Ketones Leukocytes Nitrite Labor Signs Protein Cervic Dilation Cervic Effacement Cervic Station Type Weight in lbs Pre/Post Dialysis Refused BP Diastolic BP Location Tested BP Systolic BP Type Fetus Heart Rate Present Fetus Movement Comments Flowsheet Date 08/21/2021 Velasquez Score Blood Edema Fundus Height Fundus Units Glucose Ketones Leukocytes Nitrite Labor Signs Protein Cervic Dilation Cervic Effacement Cervic Station neg none trace Type Weight in lbs Pre/Post Dialysis Refused Weight 148.501202404408 BP Diastolic BP Location Tested BP Systolic BP Type 80 137 Fetus Heart Rate Present Fetus Movement A Yes Comments gender ID, reveal on Wednesday, doing well, feeling much better on zoloft, does 25mg, not as sleepy, reviewed precautions f/u 4 weeks anatomy Flowsheet Date 09/18/2021 Velasquez Score Blood Edema Fundus Height Fundus Units Glucose Ketones Leukocytes Nitrite Labor Signs Protein Cervic Dilation Cervic Effacement Cervic Station Type Weight in lbs Pre/Post Dialysis Refused BP Diastolic BP Location Tested BP Systolic BP Type Fetus Heart Rate Present Fetus Movement Comments Flowsheet Date 09/18/2021 Velasquez Score Blood Edema Fundus Height Fundus Units Glucose Ketones Leukocytes Nitrite Labor Signs Protein Cervic Dilation Cervic Effacement Cervic Station 20 Type Weight in lbs Pre/Post Dialysis Refused Weight 158.710892353045 BP Diastolic BP Location Tested BP Systolic BP Type 68 R arm 112 sitting Fetus Heart Rate Present A 134 Fetus Movement Comments no complaints, good movement , no cramping no bleeding, good growth, EIF, to repeat in 4 weeks Flowsheet Date 10/16/2021 Velasquez Score Blood Edema Fundus Height Fundus Units Glucose Ketones Leukocytes Nitrite Labor Signs Protein Cervic Dilation Cervic Effacement Cervic Station Type Weight in lbs Pre/Post Dialysis Refused BP Diastolic BP Location Tested BP Systolic BP Type Fetus Heart Rate Present Fetus Movement Comments Flowsheet Date 10/16/2021 Velasquez Score Blood Edema Fundus Height Fundus Units Glucose Ketones Leukocytes Nitrite Labor Signs Protein Cervic Dilation Cervic Effacement Cervic Station 24 Type Weight in lbs Pre/Post Dialysis Refused Weight 163.507971139348 BP Diastolic BP Location Tested BP Systolic BP Type 72 R arm 110 sitting Fetus Heart Rate Present A 140 Fetus Movement Comments no complaints, no problems, good growth on ultrasound, EF still present. 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, precautions reviewed, no complaints f/u 2 weeks Flowsheet Date 11/27/2021 Velasquez Score Blood Edema Fundus Height Fundus Units Glucose Ketones Leukocytes Nitrite Labor Signs Protein Cervic Dilation Cervic Effacement Cervic Station neg none 30 none trace Type Weight in lbs Pre/Post Dialysis Refused Weight 175.256734511137 BP Diastolic BP Location Tested BP Systolic BP Type 73 117 Fetus Heart Rate Present A 135 Fetus Movement A Yes Comments No complaints, no problems, anxiety stable Flowsheet Date 12/12/2021 Velasquez Score Blood Edema Fundus Height Fundus Units Glucose Ketones Leukocytes Nitrite Labor Signs Protein Cervic Dilation Cervic Effacement Cervic Station 32 0cm 30% -4 Type Weight in lbs Pre/Post Dialysis Refused Weight 179.198164077540 BP Diastolic BP Location Tested BP Systolic BP Type 72 R arm 109 sitting Fetus Heart Rate Present A 145 Fetus Movement A Yes Comments complained of mucousy vagina l discharge. Digital exam revealed a closed cervix. Flowsheet Date 12/26/2021 Velasquez Score Blood Edema Fundus Height Fundus Units Glucose Ketones Leukocytes Nitrite Labor Signs Protein Cervic Dilation Cervic Effacement Cervic Station neg none 33 none trace Type Weight in lbs Pre/Post Dialysis Refused Weight 186.773275519961 BP Diastolic BP Location Tested BP Systolic BP Type 68 121 Fetus Heart Rate Present A 145 Fetus Movement A Yes Comments patient states that is havin g leg pain and discharge. reviewed precautions, preadmission scheduled, discussed labor plans f/u 2 weeks gbs Flowsheet Date 01/09/2022 Velasquez Score Blood Edema Fundus Height Fundus Units Glucose Ketones Leukocytes Nitrite Labor Signs Protein Cervic Dilation Cervic Effacement Cervic Station neg none none trace 1cm 60% -2 Type Weight in lbs Pre/Post Dialysis Refused Weight 187.949175209381 BP Diastolic BP Location Tested BP Systolic BP Type 79 122 Fetus Heart Rate Present Fetus Movement A Yes Comments patient is having some disch arge. GBS today. precautions reviewed discussed labor plans f/u one week Flowsheet Date 01/16/2022 Velasquez Score Blood Edema Fundus Height Fundus Units Glucose Ketones Leukocytes Nitrite Labor Signs Protein Cervic Dilation Cervic Effacement Cervic Station neg trace 36 none trace Type Weight in lbs Pre/Post Dialysis Refused Weight 193.41365686559 BP Diastolic BP Location Tested BP Systolic BP Type 81 122 Fetus Heart Rate Present A 138 Fetus Movement A Yes Comments patient is having some bh co ntractions, discharge and swelling. Doing well, reviewed precautions for labor f/u one week Flowsheet Date 01/23/2022 Velasquez Score Blood Edema Fundus Height Fundus Units Glucose Ketones Leukocytes Nitrite Labor Signs Protein Cervic Dilation Cervic Effacement Cervic Station neg none 36 none trace 2cm 80% -1 Type Weight in lbs Pre/Post Dialysis Refused Weight 194.871083239483 BP Diastolic BP Location Tested BP Systolic BP Type 86 126 Fetus Heart Rate Present A 125 Fetus Movement A Yes Comments patient is having some contr actions, discharge, and swelling. pt requests elective induction, reviewed increased of yanira velasquez score favorable reviewed precautions IOL 01/28 Flowsheet Date 03/18/2022 Velasquez Score Blood Edema Fundus Height Fundus Units Glucose Ketones Leukocytes Nitrite Labor Signs Protein Cervic Dilation Cervic Effacement Cervic Station Type Weight in lbs Pre/Post Dialysis Refused Weight 173.120477776577 BP Diastolic BP Location Tested BP Systolic BP Type 79 131 Fetus Heart Rate Present Fetus Movement Comments Menstrual History Last Menstrual Date Menses Monthly On Bcp Conception Prior Menses Frequency Hcg Plus Date Menarche Onset Age 1104/30/2021 Genetic Screening And Infection History Question Response Note Mental Retardation/Autism false Patient's Age Will Be 35 Years Or Older At Estim ated Date of Delivery false Thalassemia (Hungarian, Azeri, Mediterranean, Or Background): MCV < 80 false Neural Tube Defect (Meningomyelocele, Spina Bifi da, Or Anencephaly) false Congenital Heart Defect false Down Syndrome false Marcos-Sachs (eg, Muslim, Cajun, Slovenian-Independence) f alse Patria Disease false Sickle Cell Disease Or Trait () false Hemophilia Or Other Blood Disorders false Muscular Dystrophy false Cystic Fibrosis false Boyd's Chorea false Intellectual Disability/Autism false If Yes, Was Person Tested For Fragile X? false Other Inherited Genetic Or Chromosomal Disorder false Maternal Metabolic Disorder (eg, Type 1 Diabetes , PKU) false Patient Or Baby's Father Had A Child With Defects Not Listed Above false Recurrent Loss, Or A Stillbirth false Medications (including Suppl ements, Vitamins, Herbs, OTC Drugs), Illicit/Recreational Drugs, Alcohol false If Yes, Agent(s) And Strength/Dosage false Any Other Genetic History false Live With Someone With TB Or Exposed To TB false Patient Or Partner Has History Of Genital Herpes false Rash Or Viral Illness Since Last Menstrual Perio d false History Of STD, Gonorrhea, Chlamydia, HPV, Syphi lis false Other Infection History false History of HIV false History of Hepatitis false Prior GBS-infected child false Hemoglobinopathy Or Carrier false Other Structural Defect false Recent Travel History Outside of Country false Delivery Information Delivery Date Delivery Type Labor Anesthesia Weeks Gestation Incision Type Labor Labor Length Hrs Delivered By Post Complications Tubal Sterilization Discharge Date Comments 2 Induce d Regional-Ep idural 39 false Jae Benjamin CNM No care Discharge Information Feeding Method Contraceptive Method Maternal HG B and HCT Levels Breast Ob Episode Information Episode Created Date Number of Fetuses Patient Bloodtype Patient rh Status Prepregnancy Weight lbs Domestic Partner Domestic Partner Phone Father Name Marketing Finance Manager Status 06/22/19 25 1 A Positive 201 Perico rosales OPEN Fetus Data First Name Last Name Admitted to NICU Weight (g) Sex Living Outcome Pediatric Complications Fetus ID Race Codes Race Delivery Type [id number] Problems Problem Notes Problem Name Start Date End Date Resolution Snomed Code Not e COVID-19 [id number] Headache [id number] ok for exc edrin tension Obesity [id number] BMI 37 sta rted on bASA Anxiety [id number] buspirone, fluoxetine Júnior Calculation Initial Júnior Date Initial Exam Date Initial Exam Provider Initial Ultrasound Date Last Menstrual Period Date Ultra Sound Weeks Gestation 12/11/2024 06/22/2024 jae Luae 06/22/2024 03/06/2024 16 Eighteen To Twenty Week Júnior Update Ultra Sound Date Fundal Height At Umbil Quickening Date Ultra Sound Latest Weeks Gestation Final Júnior Confirmed By Final Júnior Confirmed Date Final Júnior Date Ultra Sound Latest Days Gestation 0 12/12/19 25 0 Pre- Flowsheet Flowsheet Date 06/22/2024 Velasquez Score Blood Edema Fundus Height Fundus Units Glucose Ketones Leukocytes Nitrite Labor Signs Protein Cervic Dilation Cervic Effacement Cervic Station neg none none trace Type Weight in lbs Pre/Post Dialysis Refused Weight 201.105857482185 BP Diastolic BP Location Tested BP Systolic BP Type 79 128 Fetus Heart Rate Present Fetus Movement A Yes Comments transfer of care from [facility] [place] [facility] wnl, reviewed us, wnl, begin routine care, hx anxiety, term vaginal delivery in 2021 without complications Flowsheet Date 07/19/2024 Velasquez Score Blood Edema Fundus Height Fundus Units Glucose Ketones Leukocytes Nitrite Labor Signs Protein Cervic Dilation Cervic Effacement Cervic Station neg none Type Weight in lbs Pre/Post Dialysis Refused 200.887933267398 BP Diastolic BP Location Tested BP Systolic BP Type 73 110 Fetus Heart Rate Present Fetus Movement A Yes Comments doing well, us in a few week s, +FM, precautions and education f/u 4 weeks Flowsheet Date 08/16/2024 Velasquez Score Blood Edema Fundus Height Fundus Units Glucose Ketones Leukocytes Nitrite Labor Signs Protein Cervic Dilation Cervic Effacement Cervic Station Type Weight in lbs Pre/Post Dialysis Refused BP Diastolic BP Location Tested BP Systolic BP Type Fetus Heart Rate Present Fetus Movement Comments Flowsheet Date 08/16/2024 Velasquez Score Blood Edema Fundus Height Fundus Units Glucose Ketones Leukocytes Nitrite Labor Signs Protein Cervic Dilation Cervic Effacement Cervic Station neg none Type Weight in lbs Pre/Post Dialysis Refused 202.560961124063 BP Diastolic BP Location Tested BP Systolic BP Type 71 109 Fetus Heart Rate Present Fetus Movement A Yes Comments Patient is having some disch arge. reviewed education and precautions, doing well +FM, anatomy complete f/u 4.5 weeks and plan GCT Flowsheet Date 09/15/2024 Velasquez Score Blood Edema Fundus Height Fundus Units Glucose Ketones Leukocytes Nitrite Labor Signs Protein Cervic Dilation Cervic Effacement Cervic Station neg none 25 cm Type Weight in lbs Pre/Post Dialysis Refused Weight 215.362963387497 BP Diastolic BP Location Tested BP Systolic BP Type 72 106 Fetus Heart Rate Present A 146 Fetus Movement A Yes Comments +FM GCT today. precautions a nd education reviewed plan hrowth Flowsheet Date 09/26/2024 Velasquez Score Blood Edema Fundus Height Fundus Units Glucose Ketones Leukocytes Nitrite Labor Signs Protein Cervic Dilation Cervic Effacement Cervic Station neg trace 27 cm Type Weight in lbs Pre/Post Dialysis Refused Weight 216.272098957322 BP Diastolic BP Location Tested BP Systolic BP Type 75 119 Fetus Heart Rate Present A 154 Present Fetus Movement A Yes Comments Patient is having some swell ing. reviewed precations, new job overnights +FM, has growt scheduled, education done, f/u 2 weeks Flowsheet Date 10/11/2024 Velasquez Score Blood Edema Fundus Height Fundus Units Glucose Ketones Leukocytes Nitrite Labor Signs Protein Cervic Dilation Cervic Effacement Cervic Station Type Weight in lbs Pre/Post Dialysis Refused BP Diastolic BP Location Tested BP Systolic BP Type Fetus Heart Rate Present Fetus Movement Comments Flowsheet Date 10/11/2024 Velasquez Score Blood Edema Fundus Height Fundus Units Glucose Ketones Leukocytes Nitrite Labor Signs Protein Cervic Dilation Cervic Effacement Cervic Station neg none Type Weight in lbs Pre/Post Dialysis Refused 217.133333521611 BP Diastolic BP Location Tested BP Systolic BP Type 70 105 Fetus Heart Rate Present Fetus Movement A Yes Comments us done efw 63%, vtx, call f or preadmit, +FM doing well, precautions and education, wants to plan 39 week IOL Flowsheet Date 10/25/2024 Velasquez Score Blood Edema Fundus Height Fundus Units Glucose Ketones Leukocytes Nitrite Labor Signs Protein Cervic Dilation Cervic Effacement Cervic Station neg none 35 cm Type Weight in lbs Pre/Post Dialysis Refused 219.444542498803 BP Diastolic BP Location Tested BP Systolic BP Type 74 112 Fetus Heart Rate Present A 155 Present Fetus Movement A Yes Comments doing well, starts testing next week, +FM, precautions and education has preadmit scheduled Flowsheet Date 11/01/2024 Velasquez Score Blood Edema Fundus Height Fundus Units Glucose Ketones Leukocytes Nitrite Labor Signs Protein Cervic Dilation Cervic Effacement Cervic Station Type Weight in lbs Pre/Post Dialysis Refused BP Diastolic BP Location Tested BP Systolic BP Type Fetus Heart Rate Present Fetus Movement Comments Flowsheet Date 11/01/2024 Velasquez Score Blood Edema Fundus Height Fundus Units Glucose Ketones Leukocytes Nitrite Labor Signs Protein Cervic Dilation Cervic Effacement Cervic Station neg none Type Weight in lbs Pre/Post Dialysis Refused 219.623254613128 BP Diastolic BP Location Tested BP Systolic BP Type 71 102 Fetus Heart Rate Present Fetus Movement A Yes Comments growth us today +FM doing we ll, will want IOl at 39 weeks, education and precautions gbs in 2 weeks Flowsheet Date 11/15/2024 Velasquez Score Blood Edema Fundus Height Fundus Units Glucose Ketones Leukocytes Nitrite Labor Signs Protein Cervic Dilation Cervic Effacement Cervic Station neg none 1cm 50% -3 Type Weight in lbs Pre/Post Dialysis Refused Weight 225.524394635878 BP Diastolic BP Location Tested BP Systolic BP Type 71 123 Fetus Heart Rate Present A 145 Fetus Movement A Yes Comments Good movement. no cram ping or bleeding. No LOF. Would like EIL at 39 weeks. Discussed labor precautions. GBS collected. RTC 1 week. Menstrual History Last Menstrual Date Menses Monthly On Bcp Conception Prior Menses Frequency Hcg Plus Date Menarche Onset Age 0903/06/2026 Delivery Information Delivery Date Delivery Type Labor Anesthesia Weeks Gestation Incision Type Labor Labor Length Hrs Delivered By Post Complications Tubal Sterilization Discharge Date Comments Discharge Information Feeding Method Contraceptive Method Maternal HG B and HCT Levels
--- OUTSIDE RECORDS SUMMARY | 2024-11-20 16:51 | XMS_ITS | Data Portability ---
Author Organization [facility] N[place] Ortega Address [address] [place] [address] Care Team Providers Care Legal Researcher Name Role LASHAUN Nava Primary Care Provider Unavailab LASHAUN Paniagua Rn Transitional Unavailable Assessment Encounter Date Assessment Date Assessment LastModified by Organization Details LastModified Time 06/23/2024 06/23/2024 Pt's case was discussed w/resident. Documentation was reviewed, and I agree w/resident's note. Dr. Kenney [email or web address] Not available 06/28/2024 16:44:59 Plan of Treatment Reminders Order Date Submit Date Provider Last Modified By Organization Details Last Modified Time Details Appointments None recorded. Lab influenza virus A + B + SARS-CoV-2 (COVID19) Ag panel, rapid IA, upper respirator y specimen 2024 025 [email or web address] In-Office Order, Internal Use Only DO Not Attach Compendium DO Not Attach Compendium, Do Not Delete/merge, [id number] 5 20:40:12 urinalysis , dipstick 2024 025 [email or web address] In-Office Order, Internal Use Only DO Not Attach Compendium DO Not Attach Compendium, Do Not Delete/merge, [id number] 5 11:43:11 panel 2023 024 [facility], [address] [place] [address], [address], 4 20:35:58 varicella zoster virus IgG Ab, QL, IA, serum 2023 024 [facility], [address] [facility], [place], [address], 4 20:36:02 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 2023 024 [facility], [address] [facility] [facility] [address], [place], [address], 4 20:36:00 test, urine 2023 [email or web address] In-Office Order, Internal Use Only DO Not Attach Compendium DO Not Attach Compendium, Do Not Delete/merge, [id number] 16:43:20 Referral pharmacist referral - OB patient - [facility] program 2023 024 inocente Sparks MD, [address] [place] [address], [address] [place] [address], [place], [address], 5 15:30:19 Procedures None recorded. Surgeries None recorded. Imaging None recorded. Medication Orders aspirin 81 mg tablet,del ayed release 2024 025 [facility] [id number] [address] [facility], [place], [address], 5 11:43:34 Patient TargetsNo targets recorded. Patient Instructions Encounter Date Encounter Id Patient Instructions Last Modified By Organization Details Last Modified Time 06/14/2024 [id number] I personally saw and examined the patient with the resident. I agree with the note and plan as documented. Viv Zabala MD. [facility] Not available 06/20/2024 17:56:43 Reason for Referral Pharmacist Referral for Rout ine care OB patient - [facility] program Referring Physician: Lashaun Siegel, Family Medicine, Encounter Date: 05/17/2024 Results Created Date Observation Date Name Description Value Unit Range Abnormal Flag Note LastModifiedBy Organization Detail LastModifiedTime 04/05/20 24 04/05/2024 pregn raúl test, urine HCG positi ve Not Available In-Office Order Internal Use Only DO Not Attach Compendium DO Not Attach Compendium, Do Not Delete/merge, [id number] 04/05/2024 12:45:49 05/17/20 24 05/18/2024 INTER PRETA TION: interpretati on: Commen t Not infec jo with HCV unles s early or acute infec tion is suspe cted (whic h may be delay ed in an immun ocomp romis ed indiv idual ), or other evide nce exist s to indic ate HCV infec tion. Not Available [facility] ([facility]) [address] [facility], [place], [address], 05/21/2024 20:35:57 05/17/20 24 05/18/2024 PREGN RAÚL, INITI AL SCREE N HBsAg screen NEGATI VE negati ve Not Available [facility] ([facility]) [address] [place], [address], 05/21/2024 20:35:57 05/17/20 24 05/18/2024 PREGN RAÚL, INITI AL SCREE N HCV Ab NON REACTI VE nonrea ctive Not Available [facility] ([facility]) [address] [place], [address], 05/21/2024 20:35:57 05/17/20 24 05/18/2024 PREGN RÚAL, INITI AL SCREE N RPR NON REACTI VE nonrea ctive Not Available [facility] ([facility]) [address] [place], [address], 05/21/2024 20:35:57 05/17/20 24 05/18/2024 PREGN RAÚL, INITI AL SCREE N rubella antibodies, IgG 1.98 index immune >0.99 Non-i mmune <0.90 Equiv ocal 0.90 - 0.99 Immun e >0.99 Not Available [facility] ([facility]) [address] [facility], [place], [address], 05/21/2024 20:35:57 05/17/20 24 05/18/2024 PREGN RAÚL, INITI AL SCREE N ABO grouping A Not Available [facility] ([facility]) [address] [facility], [place], [address], 05/21/2024 20:35:57 05/17/20 24 05/18/2024 PREGN RAÚL, INITI AL SCREE N Rh factor POSITI VE Pleas e note: Prior recor ds for this patie nt's ABO / Rh type are not avail able for addit ional verif icati on. Not Available [facility] ([facility]) [address] [facility], [place], [address], 05/21/2024 20:35:57 05/17/20 24 05/18/2024 PREGN RAÚL, INITI AL SCREE N antibody screen NEGATI VE negati ve Not Available [facility] ([facility]) [address] [facility], [place], [address], 05/21/2024 20:35:57 05/17/20 24 05/18/2024 PREGN RAÚL, INITI AL SCREE N HIV Ab/P24 Ag screen NON REACTI VE nonrea ctive HIV-1 /HIV- 2 antib odies and HIV-1 p24 antig en were NOT detec jo. There is no labor atory evide nce of HIV infec tion. HIV Negat caity Not Available [facility] ([facility]) [address] [facility], [place], [address], 05/21/2024 20:35:57 05/17/20 24 05/18/2024 PREGN RAÚL, INITI AL SCREE N WBC 8.9 x10e3 /uL 3.4-10 .8 Not Available [facility] ([facility]) [address] [place], [address], 05/21/2024 20:35:57 05/17/20 24 05/18/2024 PREGN RAÚL, INITI AL SCREE N RBC 4.45 x10e6 /uL 3.77-5 .28 Not Available [facility] ([facility]) [address] [facility], [place], [address], 05/21/2024 20:35:57 05/17/20 24 05/18/2024 PREGN RAÚL, INITI AL SCREE N hemoglobin 13.8 g/dL 11.1-1 5.9 Not Available [facility] ([facility]) [address] [facility], [place], [address], 05/21/2024 20:35:57 05/17/20 24 05/18/2024 PREGN RAÚL, INITI AL SCREE N hematocrit 40.3 % 34.0-4 6.6 Not Available [facility] ([facility]) [address] [facility], [place], [address], 05/21/2024 20:35:57 05/17/20 24 05/18/2024 PREGN RAÚL, INITI AL SCREE N MCV 91 fL 79-97 Not Available [facility] ([facility]) [address] [facility], [place], [address], 05/21/2024 20:35:57 05/17/20 24 05/18/2024 PREGN RAÚL, INITI AL SCREE N MCH 31.0 pg 26.6-3 3.0 Not Available [facility] ([facility]) [address] [place], [address], 05/21/2024 20:35:57 05/17/20 24 05/18/2024 PREGN RAÚL, INITI AL SCREE N MCHC 34.2 g/dL 31.5-3 5.7 Not Available [facility] ([facility]) [address] [place] [address], [address], 05/21/2024 20:35:57 05/17/20 24 05/18/2024 PREGN RAÚL, INITI AL SCREE N RDW 13.2 % 11.7-1 5.4 Not Available [facility] ([facility]) [address], [place], [address], 05/21/2024 20:35:57 05/17/20 24 05/18/2024 PREGN RAÚL, INITI AL SCREE N platelets 250 x10e3 /uL 150-45 0 Not Available [facility] ([facility]) [address], [place], [address], 05/21/2024 20:35:57 05/17/20 24 05/18/2024 PREGN RAÚL, INITI AL SCREE N neutrophils 61 % notest ab. Not Available [facility] ([facility]) [address] [facility], [place], [address], 05/21/2024 20:35:57 05/17/20 24 05/18/2024 PREGN RAÚL, INITI AL SCREE N lymphs 29 % notest ab. Not Available [facility] ([facility]) [address] [facility], [place], [address], 05/21/2024 20:35:57 05/17/20 24 05/18/2024 PREGN RAÚL, INITI AL SCREE N monocytes 8 % notest ab. Not Available [facility] ([facility]) [address] [facility], [place], [address], 05/21/2024 20:35:57 05/17/20 24 05/18/2024 PREGN RAÚL, INITI AL SCREE N eos 2 % notest ab. Not Available [facility] ([facility]) [address] [facility], [place], [address], 05/21/2024 20:35:57 05/17/20 24 05/18/2024 PREGN RAÚL, INITI AL SCREE N basos 0 % notest ab. Not Available [facility] ([facility]) [address] [facility], [place], [address], 05/21/2024 20:35:57 05/17/20 24 05/18/2024 PREGN RAÚL, INITI AL SCREE N neutrophils (absolute) 5.4 x10e3 /uL 1.4-7. 0 Not Available [facility] ([facility]) [address] [facility], [place], [address], 05/21/2024 20:35:57 05/17/20 24 05/18/2024 PREGN RAÚL, INITI AL SCREE N lymphs (absolute) 2.6 x10e3 /uL 0.7-3. 1 Not Available [facility] ([facility]) [address] [place], [address], 05/21/2024 20:35:57 05/17/20 24 05/18/2024 PREGN RAÚL, INITI AL SCREE N monocytes(ab solute) 0.7 x10e3 /uL 0.1-0. 9 Not Available [facility] ([facility]) [address] [place], [address], 05/21/2024 20:35:57 05/17/20 24 05/18/2024 PREGN RAÚL, INITI AL SCREE N eos (absolute) 0.2 x10e3 /uL 0.0-0. 4 Not Available [facility] ([facility]) [address] [place], [address], 05/21/2024 20:35:57 05/17/20 24 05/18/2024 PREGN RAÚL, INITI AL SCREE N baso (absolute) 0.0 x10e3 /uL 0.0-0. 2 Not Available [facility] ([facility]) [address] [place], [address], 05/21/2024 20:35:57 05/17/20 24 05/18/2024 PREGN RAÚL, INITI AL SCREE N immature granulocytes 0 % notest ab. Not Available [facility] ([facility]) [address] [place], [address], 05/21/2024 20:35:57 05/17/20 24 05/18/2024 PREGN RAÚL, INITI AL SCREE N immature grans (abs) 0.0 x10e3 /uL 0.0-0. 1 Not Available [facility] ([facility]) [address] [facility], [place], [address], 05/21/2024 20:35:57 05/17/20 24 05/18/2024 PREGN RAÚL, INITI AL SCREE N specific gravity 1.014 1.005- 1.030 Not Available [facility] ([facility]) [address] [place], [address], 05/21/2024 20:35:57 05/17/20 24 05/18/2024 PREGN RAÚL, INITI AL SCREE N pH 8.0 5.0-7. 5 above high normal Not Available [facility] ([facility]) [address] [place], [address], 05/21/2024 20:35:57 05/17/20 24 05/18/2024 PREGN RAÚL, INITI AL SCREE N urine-color YELLOW yellow Not Available [facility] ([facility]) [address] [place], [address], 05/21/2024 20:35:57 05/17/20 24 05/18/2024 PREGN RAÚL, INITI AL SCREE N appearance CLEAR clear Not Available [facility] ([facility]) [address] [place], [address], 05/21/2024 20:35:57 05/17/20 24 05/18/2024 PREGN RAÚL, INITI AL SCREE N WBC esterase TRACE negati ve abnormal Not Available [facility] ([facility]) [address] [place], [address], 05/21/2024 20:35:57 05/17/20 24 05/18/2024 PREGN RAÚL, INITI AL SCREE N protein NEGATI VE negati ve/tra ce Not Available [facility] ([facility]) [address] [place], [address], 05/21/2024 20:35:57 05/17/20 24 05/18/2024 PREGN RAÚL, INITI AL SCREE N glucose NEGATI VE negati ve Not Available [facility] ([facility]) [address] [place], [address], 05/21/2024 20:35:57 05/17/20 24 05/18/2024 PREGN RAÚL, INITI AL SCREE N ketones NEGATI VE negati ve Not Available [facility] ([facility]) [address] [place], [address], 05/21/2024 20:35:57 05/17/20 24 05/18/2024 PREGN RAÚL, INITI AL SCREE N occult blood NEGATI VE negati ve Not Available [facility] ([facility]) [address] [place], [address], 05/21/2024 20:35:57 05/17/20 24 05/18/2024 PREGN RAÚL, INITI AL SCREE N bilirubin NEGATI VE negati ve Not Available [facility] ([facility]) [address] [place], [address], 05/21/2024 20:35:57 05/17/20 24 05/18/2024 PREGN RAÚL, INITI AL SCREE N urobilinogen ,semi-qn 0.2 mg/dL 0.2-1. 0 Not Available [facility] ([facility]) [address] [place], [address], 05/21/2024 20:35:57 05/17/20 24 05/18/2024 PREGN RAÚL, INITI AL SCREE N nitrite, urine NEGATI VE negati ve Not Available [facility] ([facility]) [address] [place], [address], 05/21/2024 20:35:57 05/17/20 24 05/18/2024 PREGN RAÚL, INITI AL SCREE N microscopic examination SEE BELOW: Micro scopi c was indic ated and was perfo rmed. Not Available [facility] ([facility]) [address] [facility], [place], [address], 05/21/2024 20:35:57 05/17/20 24 05/19/2024 PREGN RAÚL, INITI AL SCREE N chlamydia trachomatis, LEE NEGATI VE negati ve Not Available [facility] ([facility]) [address] [facility], [place], [address], 05/21/2024 20:35:57 05/17/20 24 05/19/2024 PREGN RAÚL, INITI AL SCREE N neisseria gonorrhoeae, LEE NEGATI VE negati ve Not Available [facility] ([facility]) [address] [facility], [place], [address], 05/21/2024 20:35:57 05/17/20 24 05/19/2024 PREGN RAÚL, INITI AL SCREE N urine culture,pren atal, w/gbs FINAL REPORT Not Available [facility] ([facility]) [address] [facility], [place], [address], 05/21/2024 20:35:57 05/17/20 24 05/18/2024 MICRO SCOPI C EXAMI NATIO N WBC 0-5 /hpf 0-5 Not Available [facility] ([facility]) [address] [facility], [place], [address], 05/21/2024 20:35:59 05/17/20 24 05/18/2024 MICRO SCOPI C EXAMI NATIO N RBC None seen /hpf 0-2 Not Available [facility] ([facility]) [address] [facility], [place], [address], 05/21/2024 20:35:59 05/17/20 24 05/18/2024 MICRO SCOPI C EXAMI NATIO N epithelial cells (non renal) 0-10 /hpf 0-10 Not Available [facility] ([facility]) [address] [facility], [place], [address], 05/21/2024 20:35:59 05/17/20 24 05/18/2024 MICRO SCOPI C EXAMI NATIO N casts None seen /lpf nonese en Not Available [facility] ([facility]) [address] [facility], [place], [address], 05/21/2024 20:35:59 05/17/20 24 05/18/2024 MICRO SCOPI C EXAMI NATIO N bacteria None seen nonese en/few Not Available [facility] ([facility]) [address] [facility], [place], [address], 05/21/2024 20:35:59 05/17/20 24 05/21/2024 MATER NIT21 PLUS CORE+ SCA gestation SINGLE TON Not Available [facility] ([facility]) [address] [facility], [place], [address], 05/21/2024 20:36:00 05/17/20 24 05/21/2024 MATER NIT21 PLUS CORE+ SCA fraction 19% Not Available [facility] ([facility]) [address] [facility], [place], [address], 05/21/2024 20:36:00 05/17/20 24 05/21/2024 MATER NIT21 PLUS CORE+ SCA gestational age > or = 9W: YES Not Available [facility] ([facility]) [address] [place], [address], 05/21/2024 20:36:00 05/17/20 24 05/21/2024 MATER NIT21 PLUS CORE+ SCA test result NEGATI VE Not Available [facility] ([facility]) [address] [place], [address], 05/21/2024 20:36:00 05/17/20 24 05/21/2024 MATER NIT21 PLUS CORE+ SCA chemistry lab instructor comments SHAW Gann speci men showe d an expec jo repre senta tion of chrom osome 21, 18 and 13 mater ial. Clini maicol corre latio n is deon neil. Not Available [facility] ([facility]) [address] [facility], [place], [address], 05/21/2024 20:36:00 05/17/20 24 05/21/2024 MATER NIT21 PLUS CORE+ SCA approved by SHAW rg MD, PhD, [facility], [facility] [place] nom Labor atori es Not Available [facility] ([facility]) [address] [facility], [place], [address], 05/21/2024 20:36:00 05/17/20 24 05/21/2024 MATER NIT21 PLUS CORE+ SCA trisomy 21 (down syndrome) NEGATI VE Not Available [facility] ([facility]) [address] [facility], [place], [address], 05/21/2024 20:36:00 05/17/20 24 05/21/2024 MATER NIT21 PLUS CORE+ SCA trisomy 18 (nolan syndrome) NEGATI VE Not Available [facility] ([facility]) [address] [place], [address], 05/21/2024 20:36:00 05/17/20 24 05/21/2024 MATER NIT21 PLUS CORE+ SCA trisomy 13 (patau syndrome) NEGATI VE Not Available [facility] ([facility]) [address] [place], [address], 05/21/2024 20:36:00 05/17/20 24 05/21/2024 MATER NIT21 PLUS CORE+ SCA sex SHAW Myers Consi stent with Male Not Available [facility] ([facility]) [address] [place], [address], 05/21/2024 20:36:00 05/17/20 24 05/21/2024 MATER NIT21 PLUS CORE+ 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 Not Available [facility] ([facility]) [address] [place], [address], 05/21/2024 20:36:00 05/17/20 24 05/21/2024 MATER NIT21 PLUS CORE+ SCA xyy (kline syndrome) NOT DETECT ED Not Available [facility] ([facility]) [address] [place], [address], 05/21/2024 20:36:00 05/17/20 24 05/21/2024 MATER NIT21 PLUS CORE+ SCA xxy (klinefelter syndrome) NOT DETECT ED Not Available [facility] ([facility]) [address] [place], [address], 05/21/2024 20:36:00 05/17/20 24 05/21/2024 MATER NIT21 PLUS CORE+ 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 The NPV for SCA and ESS canno t be calcu lated as SCA and ESS are only repor jo when an abnor malit y is detec jo. Not Available [facility] ([facility]) [address] [place], [address], 05/21/2024 20:36:00 05/17/20 24 05/21/2024 MATER NIT21 PLUS CORE+ SCA positive predictive value N/A Not Available [facility] ([facility]) [address] [place], [address], 05/21/2024 20:36:00 05/17/20 24 05/21/2024 MATER NIT21 PLUS CORE+ SCA about the test COMMEN T The Mater niT(R ) 21 PLUS labor atory -deve loped test (LDT) jose zes circu latin g cell- free DNA from a mater nal blood sampl e. This test is used for scree yina purpo ses and not diagn ostic . Clini maicol corre latio n is recom neville d. Valid ation data on twin pregn ancie s is limit ed and the abili ty of this test to detec t aneup loidy in highe r multi ple gesta tions has not yet been valid ated. Not Available [facility] ([facility]) [address] [facility], [place], [address], 05/21/2024 20:36:00 05/17/20 24 05/21/2024 MATER NIT21 PLUS CORE+ SCA test method COMMEN T See Notes Circu latin g cell- free DNA was purif ied from the plasm a compo nent of mater nal blood . The extra cted DNA was then conve rted into a [employer] DNA caty ry for aneup loidy jose sis of chrom osome s 21, 18, and 13 via next gener ation seque ncing .[1] Optio nal findi ngs based on the test order inclu de sex chrom osome aneup loidy (SCA) [2], and enhan evi seque ncing serie s (ESS) [3], which will only be repor oj on as an addit ional findi ng when an abnor malit y is detec jo. SCA testi ng inclu benjie infor matio n on X and Y repre senta tion, while ESS testi ng inclu benjie delet ions in selec jo regio ns (22q, 15q, 11q, 8q, 5p, 4p, 1p) and triso my of chrom osome s 16 and 22. Not Available [facility] ([facility]) [address] [facility], [place], [address], 05/21/2024 20:36:00 05/17/20 24 05/21/2024 MATER NIT21 PLUS CORE+ SCA performance COMMEN T The perfo rmanc e tramaine cteri stics of the Mater niT(R ) 21 PLUS labor atory -deve loped test (LDT) have been deter mined in a clini maicol valid ation study with pregn ant women at incre ased risk for chrom osoma l aneup loidy .[1-4 ] Not Available [facility] ([facility]) [address] [facility], [place], [address], 05/21/2024 20:36:00 05/17/20 24 05/21/2024 MATER NIT21 PLUS CORE+ SCA performance characterist ics NOTE ----- ----- ----- ----- ----- ----- ----- ----- ----- ----- ----- ---- ! Sex ! Accur acy: 99.4% ! !---- ----- ----- ----- ----- ----- ----- ----- ----- ----- ----- ---! ! Tony quintanilla (kirby ngo syndr ome) ! Est. Sens# ! Est. Spec ! !---- ----- ----- ----- ----- ----- ----- ----- ----- ----- ----- ---! ! Winnie rubalcava 21 (Michael Syndr ome) ! 99.1% ! 99.9% ! !---- ----- ----- ----- ----- ----- ----- ----- ----- ----- ----- ---! ! Winnie rubalcava 18 (Gwendolyn saucedo Syndr ome) ! >99.9 % ! 99.6% ! !---- ----- ----- ----- ----- ----- ----- ----- ----- ----- ----- ---! ! [place] my 11 (Analiaa u Syndr ome) ! 91.7% ! 99.7% ! !---- ----- ----- ----- ----- ----- ----- ----- ----- ----- ----- ---! ! Sex Chrom osome Aneup loidi es## ! 96.2% ! 99.7% ! !---- ----- ----- ----- ----- ----- ----- ----- ----- ----- ----- ---! * As repor jo in ISCA datab ase nstd3 7 [http [email or web address] [email or web address] [email or web address] /stud ies/n [email or web address] / ] # Estim ated Sensi tivit y. Sensi tivit y estim ated acros s the obser patti size distr ibuti on of each syndr ome [per ISCA datab ase nstd3 7] and acros s the range of fract ions obser patti in routi ne clini maicol NIPT. Actua l sensi tivit y can also be influ enced by other facto rs such as the size of the event , total seque nce count s, ampli ficat ion bias, or seque nce bias. ## Singl eton gesta tion only. Not Available [facility] ([facility]) [address], [place], [address], 05/21/2024 20:36:00 05/17/20 24 05/21/2024 MATER NIT21 PLUS CORE+ SCA limitations of the test COMMEN T While the resul ts of these tests are highl y relia ble, disco rdant resul ts, inclu ding inacc urate sex predi ction , may occur due to place ntal, mater nal, or mosai cism or neopl asm; vanis mary ann twin; prior mater nal organ trans plant ; or other cause s. These tests are scree yina tests and not diagn ostic ; they do not repla ce the accur acy and preci neela of prena corina diagn osis with CVS or amnio cente sis. A patie nt with a posit caity test resul t shoul d be refer red for geneva ic couns eling and offer ed invas caity prena corina diagn osis for confi rmati on of test resul ts.[5 ] The resul ts of this testi ng, inclu ding the benef its and limit ation s, shoul d be discu ssed with a quali fied healt patricia provi randee. Pregn raúl manag ement decis ions, inclu ding termi natio n of the pregn raúl, shoul d not be based on the resul ts of these tests alone . The healt hcaking provi randee is respo nsibl e for the use of this infor matio n in the manag ement of their patie nt. Sex chrom osoma l aneup loidi es are not repor table for known multi ple gesta tions . A negat caity resul t does not ensur e an unaff ected pregn raúl nor does it exclu de the possi bilit y of other chrom osoma l abnor malit ies or defec ts which are not a part of these tests . An uninf ormat caity resul t may be repor jo, the cause s of which may inclu de, but are not limit ed to, insuf ficie nt seque ncing cover age, noise or artif acts in the regio n, ampli ficat ion or seque ncing bias, or insuf ficie nt fract ion. These tests are not inten ded to ident fernando pregn ancie s at risk for neura l tube defec ts or ventr al wall defec ts. Testi ng for whole chrom osome abnor malit ies (incl uding sex chrom osome s) and for subch romos omal abnor malit ies could lead to the poten tial disco very of both and mater nal genom ic abnor malit ies that could have major , minor , or no, clini maicol signi fican ce. Evalu ating the signi fican ce of a posit caity or a non-r eport able resul t may invol ve both invas caity testi ng and addit ional studi es on the mothe r. Such inves tigat ions may lead to a diagn osis of mater nal chrom osoma l or subch romos omal abnor malit ies, which on occas ion may be assoc iated with benig n or malig nant mater nal neopl asms. These tests may not accur ately ident fernando tripl oidy, jocelin evi rearr angem ents, or the preci se locat ion of subch romos omal dupli catio ns or delet ions; these may be detec jo by venita corina diagn osis with CVS or amnio cente sis. The abili ty to repor t resul ts may be impac jo by mater nal BMI, mater nal weigh t, mater nal syste mitchell lupus eryth emato alma (SLE) and/o r by certa in pharm aceut ical agent s such as low molec ular weigh t hepar in (for examp le: Loven ox(R) , Xapar in(R) , Clexa ne(R) and Fragm in(R) ). Not Available [facility] ([facility]) [address] [facility], [place], [address], 05/21/2024 20:36:00 05/17/20 24 05/21/2024 MATER NIT21 PLUS CORE+ SCA note COMMEN T See Notes [employer] is a subsi diary of [employer], using the brand [facility]. This test was devel oped and its perfo rmanc e tramaine cteri stics deter mined by proteonomix rp. It has not been clear ed or appro patti by the Food and Drug Admin istra tion. This labor atory is certi fied under the Clini maicol Labor atory Impro vemen t Amend ments (CLIA ) as quali fied to perfo rm high compl exity clini maicol labor atory testi ng and accre dited by the Juan C fabian of Christian can Patho logis ts (CAP) . If there is futur e clini maicol need for addin g Mater niT GENOM E testi ng, this speci men will be avail able until term. [facility] sampl es will not be retai carmen beyon d 60 days. [facility] patie nts will have to send a new sampl e for re-se quenc ing ([facility] Test Code: 83109 4). Not Available [facility] ([facility]) [address] [facility], [place], [address], 05/21/2024 20:36:00 05/17/20 24 05/21/2024 MATER NIT21 PLUS CORE+ SCA references COMMEN T 1. Lucila FABIAN, et al. [place] Med. 2012; 14(3) :296- 305. 2. Epifanio WILKERSON, et al. Prena t Diag. 2013; 33(6) :591- 597. 3. Carlitos C, et al. Clin Chem. 2015 Sep;6 1(4): 608-6 16. 4. Lucila FABIAN, et al. [place] Med. 2011; 13(11 ):913 -920. 5. ACOG/ SMFM Pract ice Bulle tin No. 226, Mar 2020. Not Available [facility] ([facility]) [address] [facility], [place], [address], 05/21/2024 20:36:00 05/17/20 24 05/21/2024 MATER NIT21 PLUS CORE+ SCA pdf . Not Available [facility] ([facility]) [address] [facility], [place], [address], 05/21/2024 20:36:00 05/17/20 24 05/19/2024 RESUL T result 1 Commen t Mixed uroge nital absilio 50,00 0-100 ,000 colon y formi ng units per mL Not Available [facility] ([facility]) [address] [facility], [place], [address], 05/21/2024 20:36:01 05/17/20 24 05/18/2024 VARIC EUGENIA- ZOSTE R V AB, IGG varicella zoster IgG REACTI VE nonrea ctive Ple ase note refer ence inter giselle quinonez e A React caity resul t is consi dered evide nce of immun ity to VZV. React caity indic ates that VZV IgG was detec jo consi stent with previ ous infec tion and/o r vacci natio n. A Non React caity resul t indic ates that VZV IgG was not detec jo sugge sting that immun ity has not been acqui red. Not Available [facility] ([facility]) [address], [place], [address], 05/21/2024 20:36:02 06/14/19 25 06/14/2024 urina lysis , dipst ick Leukocytes Negati ve Not Available In-Office Order Internal Use Only DO Not Attach Compendium DO Not Attach Compendium, Do Not Delete/merge, 06/14/2024 11:33:22 06/14/19 25 06/14/2024 urina lysis , dipst ick Nitrite negati ve Not Available In-Office Order Internal Use Only DO Not Attach Compendium DO Not Attach Compendium, Do Not Delete/merge, 06/14/2024 11:33:22 06/14/19 25 06/14/2024 urina lysis , dipst ick Urobilinogen .2 Not Available In-Of fice Order Internal Use Only DO Not Attach Compendium DO Not Attach Compendium, Do Not Delete/merge, 06/14/2024 11:33:22 06/14/19 25 06/14/2024 urina lysis , dipst ick Protein 30 Not Available In-Office Order Internal Use Only DO Not Attach Compendium DO Not Attach Compendium, Do Not Delete/merge, 06/14/2024 11:33:22 06/14/19 25 06/14/2024 urina lysis , dipst ick pH 5.5 Not Available In-Office Order Internal Use Only DO Not Attach Compendium DO Not Attach Compendium, Do Not Delete/merge, 06/14/2024 11:33:22 06/14/19 25 06/14/2024 urina lysis , dipst ick Blood Negati ve Not Available In-Office Order Internal Use Only DO Not Attach Compendium DO Not Attach Compendium, Do Not Delete/merge, 06/14/2024 11:33:22 06/14/19 25 06/14/2024 urina lysis , dipst ick Specific [place] 1.030 Not Available In-Off ice Order Internal Use Only DO Not Attach Compendium DO Not Attach Compendium, Do Not Delete/merge, 06/14/2024 11:33:22 06/14/19 25 06/14/2024 urina lysis , dipst ick Ketone Trace Not Available In-Office Order Internal Use Only DO Not Attach Compendium DO Not Attach Compendium, Do Not Delete/merge, 06/14/2024 11:33:22 06/14/19 25 06/14/2024 urina lysis , dipst ick Bilirubin Negati ve Not Available In-Office Order Internal Use Only DO Not Attach Compendium DO Not Attach Compendium, Do Not Delete/merge, 06/14/2024 11:33:22 06/14/19 25 06/14/2024 urina lysis , dipst ick Glucose Negati ve Not Available In-Office Order Internal Use Only DO Not Attach Compendium DO Not Attach Compendium, Do Not Delete/merge, 06/14/2024 11:33:22 06/14/19 25 06/14/2024 urina lysis , dipst ick Appearance Clear Not Available In-Offi ce Order Internal Use Only DO Not Attach Compendium DO Not Attach Compendium, Do Not Delete/merge, 06/14/2024 11:33:22 06/14/19 25 06/14/2024 urina lysis , dipst ick Color Dark Yellow Not Available In-Office Order Internal Use Only DO Not Attach Compendium DO Not Attach Compendium, Do Not Delete/merge, 06/14/2024 11:33:22 06/23/19 25 06/23/2024 influ janie virus A + B + SARS- CoV-2 (COVI D19) Ag panel , rapid IA, upper respi rator y speci men Flu A negati ve Not Available In-Office Order Internal Use Only DO Not Attach Compendium DO Not Attach Compendium, Do Not Delete/merge, [id number] 06/23/2024 15:53:21 06/23/19 25 06/23/2024 influ janie virus A + B + SARS- CoV-2 (COVI D19) Ag panel , rapid IA, upper respi rator y speci men Flu B negati ve Not Available In-Office Order Internal Use Only DO Not Attach Compendium DO Not Attach Compendium, Do Not Delete/merge, [id number] 06/23/2024 15:53:21 06/23/1906/23/2024 influ janie virus A + B + SARS- CoV-2 (COVI D19) Ag panel , rapid IA, upper respi rator y speci men Rapid SARS CoV 2 Ag, QL IA, respiratory specimen positi ve Not Available In-Office Order Internal Use Only DO Not Attach Compendium DO Not Attach Compendium, Do Not Delete/merge, [id number] 06/23/2024 15:53:21 Result Notes None recorded. Problems Name Problem SNOMED Code Status Onset Date Resolution Date Notes Provider Name and Address Organization Details Recorded Time Pain of right ankle joint 25689058673 167651 Active 2023 LASHAUN SIEGEL MD Attn: Accounting ,[address] [place], [address] , [facility] - [facility] 4 15:07:41 Anxiety 90439440 Active 2023 On fluoxeti ne 20 mg daily, buspiron e 15 mg BID, bupropio n XL 150 mg daily. LASHAUN SIEGEL MD Attn: Accounting ,[address] [place], [address] , [facility] - [facility] 4 17:50:01 Pregnanc y 21237503 Active 2023 Jillian Lehman MA null, [place] - [facility] 4 15:26:21 Anxiety 01348871 Active 2023 On fluoxeti ne 20 mg daily, buspiron e 15 mg BID, bupropio n XL 150 mg daily. LASHAUN SIEGEL MD Attn: Accounting ,[address] [place], [address] , [place] [facility] 4 17:50:01 Maternal obesity complica ting pregnanc y, childbir th and the [place] , antepart 39355079994 7 Active 2023 Pre-preg catarina BMI 32, weight 208#. Recommen ded 11-20# weight gain. LASHAUN SIEGEL MD Attn: Accounting ,[address] [place], [address] , [place] [facility] 4 17:49:46 Maternal obesity complica ting pregnanc y, childbir th and the [place] , [facility] 93085244001 7 Active 2023 Pre-preg catar[place] BMI 32, weight 208#. Recommen ded 11-20# weight gain. LASHAUN SIEGEL MD Attn: Accounting ,[address] [place], [address] , [place] [facility] 4 17:49:46 Infectio us mononucl eosis 793834409 Completed 10/19/2023 LASHAUN SIEGEL MD Attn: Accounting ,[address] [place], [address] , [place] [facility] 14:39:28 Otitis media 40866187 Completed 10/19/2023 LASHAUN SIEGEL MD Attn: Accounting ,[address] [place], [address] , [place] [facility] 14:39:26 Obesity 531377432 Active LASHAUN SIEGEL MD Attn: Accounting ,[address] [place], [address] , [place] [facility] 15:07:39 Streptoc occal sore throat 79051366 Completed 10/19/2023 LASHAUN SIEGEL MD Attn: Accounting ,[address] [place], [address] , [place] [facility] 14:39:25 Problem Notes None recorded. Procedures Surgical History Date Name Laterality Status Provider Name and Address Organization Details Recorded Time OB Dating Ultrasound completed LASHAUN SIEGEL MD Attn: Accounting,[address], [place], [address], [facility] - [facility] 05/19/2024 17:45:51 Imaging Results None recorded. Procedure Notes None recorded. Medical Equipment None Reported. Allergies No known drug allergies Medications Name Sig Start Date Stop Date Status Note LastModified by Organization Details LastModified Time cyclobenzap rine 10 mg tablet 02/27 completed Not Available Not Available Not Available amoxicillin 500 mg capsule Take 2 capsules twice a day by oral route with meals for 10 days. 02/27 completed Not Available Not Available Not Available buspirone 5 mg tablet TAKE 2 TABS BY MOUTH TWICE A DAY NEEDED FOR ANXIETY 10/18 completed Not Available Not Available Not Available ibuprofen 800 mg tablet TAKE 1 TABLET BY MOUTH THREE TIMES A DAY NEEDED FOR PAIN 02/13 completed Not Available Not Available Not Available prednisone 20 mg tablet TAKE 2 TABLETS EVERY DAY FOR 5 DAYS 10/18 completed Not Available Not Available Not Available aspirin 81 mg tablet,pacheco yed release Take 1 tablet every day by oral route for 90 days. 2024 active Not Available Not Available Not Avai lable ofloxacin 0.3 % ear drops 12/15 completed Not Available Not Available Not Available amoxicillin 875 mg tablet TAKE 1 TABLET BY MOUTH EVERY 12 HOURS 10/18 completed Not Available Not Available Not Available citalopram 20 mg tablet TAKE 1 TABLET BY MOUTH EVERY DAY 10/18 completed Not Available Not Available Not Available oseltamivir 75 mg capsule Take 1 capsule twice a day by oral route for 5 days. 01/20 completed Not Available Not Available Not Available buspirone 10 mg tablet TAKE 1 TABLET BY MOUTH TWICE A DAY 10/18 completed Not Available Not Available Not Available fluoxetine 10 mg capsule TAKE 1 CAPSULE BY MOUTH EVERY DAY 10/18 completed Not Available Not Available Not Available amoxicillin 400 mg/5 mL oral suspension Take 7.5 mL twice a day by oral route for 10 days. 05/04 completed Not Available Not Available Not Available fluoxetine 20 mg capsule TAKE 1 CAPSULE BY MOUTH EVERY DAY active Not Available Not Available No t Available fluticasone propionate 50 mcg/actuati on nasal spray,suspe nsion USE 2 SPRAYS IN EACH NOSTRIL DAILY FOR 14 DAYS 02/13 completed Not Available Not Available Not Available amoxicillin 875 mg-potgabeiu m clavulanate 125 mg tablet TAKE 1 TABLET BY MOUTH TWICE A DAY FOR 7 DAYS 12/15 completed Not Available Not Available Not Available buspirone 15 mg tablet TAKE 1 TABLET BY MOUTH TWICE A DAY active Not Available Not Available No t Available hydroxyzine pamoate 25 mg capsule TAKE 1 TABLET (25 MG) ORALLY TWICE A DAY NEEDED FOR ANXIETY FOR 7 DAYS 10/18 completed Not Available Not Available Not Available bupropion HCl XL 150 mg 24 hr tablet, extended release TAKE 1 TABLET BY MOUTH EVERY DAY IN THE MORNING FOR 30 DAYS 06/12 completed Not Available Not Available Not Available Junel FE 06/26 (28) 1 mg-20 mcg (21)/75 mg (7) tablet TAKE 1 TABLET BY MOUTH EVERY DAY 10/18 completed Not Available Not Available Not Available Allergy Relief-D (cetirizine ) 5 mg-120 mg tablet,exte nded release TAKE 1 TABLET BY MOUTH EVERY 12 HOURS NEEDED FOR NASAL CONGESTIO N 02/13 completed Not Available Not Available Not Available Lo Loestrin Fe 1 mg-10 mcg (24)/10 mcg (2) tablet TAKE 1 TABLET BY MOUTH EVERY DAY 02/13 completed Not Available Not Available Not Available Vitals Date Recorded Body height Body mass index (BMI) Body weight Body temperature Respiratory rate Heart rate Systolic blood pressure Diastolic blood pressure Provider Name and Address Organization Details Last Updated DateTime 5 170.18 cm 31.5 kg/m2 79485.4 2 g 98.7 [degF] 16 /min 108 /min 122 mm[Hg] 79 mm[Hg] Dorys Yeung MA [place] - [facility] 5 10:34:13 Date Recorded Body height Body mass index (BMI) Body weight Body temperature Oxygen saturation Oxygen saturation in Arterial blood by Pulse oximetry Respiratory rate Heart rate Systolic blood pressure Diastolic blood pressure Systolic blood pressure Diastolic blood pressure Provider Name and Address Organization Details Last Updated DateTime 5 170.18 cm 31.5 kg/m2 56248.0 7 g 98.2 [degF] 98 % 98 % 16 /min 135 /min 98 mm[Hg] 63 mm[Hg] 109 mm[Hg] 74 mm[Hg] Vale Rivero MA [place] - [facility] 5 16:09:11 Date Recorded Body height Body mass index (BMI) Body mass index (BMI) [Percentile] Per age and sex Body weight Oxygen saturation Oxygen saturation in Arterial blood by Pulse oximetry Heart rate Respiratory rate Body temperature Systolic blood pressure Diastolic blood pressure Provider Name and Address Organization Details Last Updated DateTime 4 170.18 cm 32.6 kg/m2 95 % 57291.5 6 g 99 % 99 % 96 /min 12 /min 98.8 [degF] 113 mm[Hg] 75 mm[Hg] Jillian Lehman MA [place] - [facility] 4 16:00:38 Date Recorded Body height Body mass index (BMI) Body weight Oxygen saturation Oxygen saturation in Arterial blood by Pulse oximetry Heart rate Body temperature Respiratory rate Systolic blood pressure Diastolic blood pressure Provider Name and Address Organization Details Last Updated DateTime 4 170.18 cm 31.6 kg/m2 65306.8 7 g 99 % 99 % 110 /min 98.2 [degF] 16 /min 118 mm[Hg] 77 mm[Hg] Jillian Lehman MA [place] - [facility] 4 15:28:39 Social History Question Answer Notes LastModified by Organizat ion Details LastModified Time Tobacco Smoking Status Never Smoker Not Available [facility] 04/09/2020 03:39:29 Animal Exposure? Yes Dogs [email or web address] Informa tion not available 01/24/2015 Do You Wear A Helmet When Biking? Yes [id number] Information not available 04/09/2020 What Is Your Level Of Caffeine Consumption? Occasional [id number] Information not available 04/09/2020 What Type Of Bonding Machine Setter Do You Use? None [id number] Information not available 04/09/2020 In The 14 Days Before Symptom Onset, Have You Had Close Contact With A Laboratory-confir med COVID-19 While That Case Was Ill? No Information not available 02/13/2021 In The 14 Days Before Symptom Onset, Have You Had Close Contact With A Person Who Is Under Investigation For COVID-19 While That Person Was Ill? No Information not available 02/13/2021 Have You Been To An Area Known To Be High Risk For COVID-19? No Information not available 02/13/2021 What Type Of Diet Are You Following? REGULAR [id number] Information not available 04/09/2020 What Is The Highest Grade Or Level Of School You Have Completed Or The Highest Degree You Have Received? [id number] Information not available 02/13/2021 Have There Been Any Changes To Your Family Or Social Situation? No [id number] Information no t available 04/09/2020 Are There Any Guns Present In Your Home? No [id number] Information not available 04/09/2020 Do You Use Insect Repellent Routinely? Yes [id number] Information not available 04/09/2020 Car Seat Type Or Seat Belt? Seat Belt [email or web address] Information not available 01/24/2015 Parent Involvement? Both Parents Involved [email or web address] Information not available 01/24/2015 Riding In Car Front Seat? Yes [email or web address] Information not available 01/24/2015 What Was The Date Of Your Most Recent Tobacco Screening? 06/14/2024 Information not available 06/14/2024 How Many Children Do You Have? 1 Information not available 10/19/2023 What Is Your Parents' Marital Status? [id number] Information not available 04/09/2020 Do You Have Any Pets? Yes Information not available 02/13/2021 Pool Exposure No [email or web address] Informatio n not available 01/24/2015 Do You Use Protection During Sex? No Information not available 10/19/2023 What Is Your Relationship Status? Single Information not available 10/19/2023 Do You Use Your Seat Belt Or Car Seat Routinely? Yes Information not available 02/13/2021 Are You Sexually Active? Yes Information not available 10/19/2023 Do You Have Any Siblings? 1 Sister [id number] Information not available 04/09/2020 Do You Have Smoke And Carbon Monoxide Detectors In Your Home? Yes [id number] Information not available 04/09/2020 Are You Passively Exposed To Smoke? Yes Information no t available 10/19/2023 Do You Participate In Social Media? Yes Information not available 02/13/2021 What Types Of Sporting Activities Do You Participate In? None [id number] Information not available 04/09/2020 Do You Use Sunscreen Routinely? Yes [id number] Information not available 04/09/2020 Has Tobacco Cessation Counseling Been Provided? Yes Information not available 10/19/2023 On What Date Was Tobacco Cessation Counseling Provided? 06/14/2024 Information not available 06/14/2024 Year In School 10 [email or web address] Informatio n not available 02/27/2019 Are You Currently In School? Yes Information not available 02/13/2021 Sex: Female Functional Status Question Answer Note LastModified by Organizat ion Details LastModified Time Do you use any illicit or recreational drugs? No Information not available 10/19/2023 Do you or have you ever used any other forms of tobacco or nicotine? Yes Information not available 10/19/2023 What is your level of alcohol consumption? None Information not available 10/19/2023 Are you currently employed? Yes [email or web address] Information not available 12/16/2023 Do you or have you ever used e-cigarettes or vape? Current user of electronic cigarettes Information not available 10/19/2023 What is your exercise level? Moderate [id number] Information not available 04/09/2020 Mental Status Question Answer Note LastModified by Organization D etails LastModified Time Do you feel stressed (tense, restless, nervous, or anxious, or unable to sleep at night)? [id number] Information not available 10/19/2023 Are you or have you been involved with bullying? No [id number] Information not available 04/09/2020 Family History Relationship Description Onset Age of this Age Resolved Age Notes LastModified by Organization Details LastModified Time Mother Kidney disease [email or web address] Not available 2014 11:43:54 Maternal Grandmother Asthma [email or web address] Not available 02/07 11:43:54 Notes:06/14/24 Medical History Condition Response Coronary Artery Disease N Other N High Blood Pressure N Atrial Fibrillation N Blood Diseases N Ear or Hearing Problems N Thyroid Problems N Kidney or Bladder Problems N Blood Clots N COPD N Depression N GI Problems N Developmental or Behavioral Disorders N Skin Problems N Premature N Anemia N Constipation N Heart Attack (MT) N Diabetes N Anxiety Disorder N Muscle, Joint, or Bone Problems N Bedwetting N Vision or Eye Problems N Seizures/Epilepsy N Heart Problems/Murmur N Head Injury/Concussion N Acid Reflux (GERD) N Cancer N Stroke N Allergies N Asthma N ADHD N Bladder or Kidney Problems N High Cholesterol N Hepatitis N Liver Disease N Headaches N Osteoporosis N Heart Failure N Chicken Pox N Autism Spectrum Disorder (ASD) N Gynecological History Statement/Question Response Flow Moderate Date of LMP 03/06/2024 Menses Monthly Y Duration of Flow (days) 5 Age at Menarche 13 Current Control Method None Age at First Child 16 LMP Approximate Obstetrics History GPAL:G 2 P 1 0 0 1 Type Value Full Term 1 Living 1 Total 2 Immunizations Vaccine Type Date Status Note Provider Nam e and Address Organization Details Recorded Time HPV9 6 completed Not Available [facility] 06/24/2019 02:32:04 DTaP-Hep B-IPV 4 completed LASHAUN SIEGEL MD Attn: Accounting[address] [place], [place], [address] [place] [address], [place] [facility] 05/17/2024 15:39:51 DTaP-Hep B-IPV 4 completed LASHAUN SIEGEL MD Attn: Accounting[address] [place], [address], [place] [facility] 05/17/2024 15:39:51 DTaP-Hep B-IPV 4 completed LASHAUN SIEGEL MD Attn: Accounting[address] [place], [place], [address] [place] [address], [place] [facility] 05/17/2024 15:39:51 Hib, unspecified formulation 4 completed APARNA Rojas, [facility] 01/24/2015 14:59:34 pneumococcal conjugate PCV 7 4 [place] AP[place] [facility] 01/24/2015 14:59:34 IPV 4 [place] [facility] 01/24/2015 14:59:34 DTaP 4 [place] [facility] 01/24/2015 14:59:34 MMR 8 [place] [facility] 01/24/2015 14:59:34 pneumococcal conjugate PCV 7 4 [place] [facility] 01/24/2015 14:59:34 DTaP 4 completed Vale Mon[place], [place] [facility] 01/24/2015 14:59:34 varicella 5 completed APARNA Rojas, [place] [facility] 01/24/2015 14:59:34 DTaP 4 completed APARNA Rojas, [place] [facility] 01/24/2015 14:59:34 MMR 5 [place] [facility] 01/24/2015 14:59:34 Hep B, adolescent or pediatric 4 [place] [facility] 01/24/2015 14:59:34 Hep A, ped/adol, 2 dose 8 [place] [facility] 01/24/2015 14:59:34 IPV 4 [place] [facility] 01/24/2015 14:59:34 influenza, unspecified formulation 5 [place] [facility] 01/24/2015 14:59:34 DTaP 5 [place] [facility] 01/24/2015 14:59:34 Hib, unspecified formulation 4 [place] [facility] 01/24/2015 14:59:34 Hep B, adolescent or pediatric 3 [place] [facility] 01/24/2015 14:59:34 pneumococcal conjugate PCV 7 4 [place] [facility] 01/24/2015 14:59:34 Hep B, adolescent or pediatric 4 completed [place] [facility] 01/24/2015 14:59:34 Hep B, adolescent or pediatric 4 completed [place] [facility] 01/24/2015 14:59:34 IPV 8 completed [place] [facility] 01/24/2015 14:59:34 DTaP 8 completed [place] [facility] 01/24/2015 14:59:34 Hep A, ped/adol, 2 dose 9 completed [place] [facility] 01/24/2015 14:59:34 varicella 8 completed [place] [facility] 01/24/2015 14:59:34 Hib, unspecified formulation 4 completed [place] [facility] 01/24/2015 14:59:34 IPV 4 completed [place] [facility] 01/24/2015 14:59:34 meningococcal MCV4P 1 [place] AP[place]NA [place] [facility] 02/13/2021 16:59:43 meningococcal B, OMV 1 completed Karla Georg[place] [facility] 02/13/2021 16:59:44 meningococcal B, OMV 1 [place] AP[place]NA [place] [facility] 03/18/2021 09:33:01 Tdap 5 completed Not Available [facility] 06/24/2019 02:42:05 HPV9 5 completed Not Available [facility] 06/24/2019 02:41:24 Meningococcal MCV4O 5 completed Not Available [facility] 06/24/2019 02:31:18 HPV9 5 completed Not Available [facility] 06/24/2019 02:48:35 Influenza, live, quadrivalent, intranasal 5 completed Not Available [facility] 06/24/2019 02:32:30 Past Encounters Encounter ID Performer Location Encounter Start Date Encounter Closed Date Diagnosis/Indication Diagnosis SNOMED-CT Code Diagnosis ICD10 Code Diagnosis Note [id number] YOVANA [facility] (Peds) [address] [place] [address] 04/24/2014 10:13:34 04/25/2014 17:07:05 Streptococcal sore throat 25961645 [id number] [facility] [address] [place] [address] 01/24/2015 14:38:00 01/25/2015 08:10:08 Otitis media 55572725 [id number] [facility] [address] [place] [address] 02/07/2015 11:26:45 02/07/2015 14:59:23 Well child 871196630 discussed routine early childhood educator aide discussed safety and school performanc e Obesity 334385769 weight reduction with diet and exercise [id number] [facility] [address] [place] [address] 04/11/2015 08:34:44 04/11/2015 17:24:47 Active or passive immunization 496870874 Z23 [id number] [facility] [address] [place] [address] 08/15/2015 09:02:27 08/15/2015 15:03:50 Active or passive immunization 996362822 Z23 [id number] [facility] [address] [place] [address] 05/20/2017 15:35:01 05/20/2017 16:51:12 Upper respiratory infection 92301177 J06.9 rest, tylenol prn, humidifier , vitamin c, etc suspect pt has flu. however will be unable to obtain swab results within 48 hour window. start [facility] [id number] MD Shruthi [facility]tonhal[facility] (Peds) [address] [place] [address] 01/20/2018 11:04:03 01/24/2018 12:43:49 Well child 241568111 Z00.129 discussed routine early childhood educator aide discussed safety and school performanc e Obesity 256310724 E66.9 weight reduction with diet and exercise [id number] [facility] [address] [place] [address] 02/27/2019 14:49:02 02/28/2019 10:18:38 Well child 431685414 Z00.129 discussed routine early childhood educator aide discussed safety and school performanc e Diet education 07502434 Z71.3 Exercises education, guidance, and counseling 767455386 Z71.82 Keratosis pilaris 245331 5 L85.8 moisturize r tid [id number] [facility] [address] [place] [address] 02/27/2019 14:55:58 02/28/2019 09:46:25 Well child 165983341 Z00.129 discussed routine early childhood educator aide discussed safety and school performanc e Diet education 87567520 Z71.3 Exercises education, guidance, and counseling 022691349 Z71.82 Keratosis pilaris 758423 5 L85.8 moisturize r tid [id number] [facility] [address] [place] [address] 02/13/2021 16:03:48 02/18/2021 14:48:11 Well child visit 952938601 Z00.129 discussed routine adolescent carediscus sed safety and school performanc ediscussed healthy weight. Anxiety 40088942 F41.9 discussed potential benefits and SE of antidepres sants including the black box warning. pt needs to establish ongoing care with a psychiatri st and counselor. 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 Exam shows stable ankle with right deltoid ligament tenderness to palpation. 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 Exam shows stable ankle with right deltoid ligament tenderness to palpation. Referred to PT for further evaluation and treatment. Recommende d Tylenol, oral ibuprofen or topical diclofenac gel as needed for pain. Recommende d ice as needed for pain, swelling.- 12/16/23: Continue home exercise program prescribed by PT. If patient needs custom orthotics in future, will refer to podiatry. Rib pain 253396990 R07.8 1 - Likely MSK pain after injury; now resolved Depression screening 171 066873 Z13.31 - Negative screen for depression [id number] MD Thom BARRERA (FINISHING MACHINE OPERATOR [employer]) [address] [place] [address] 01/07/2024 15:20:24 01/13/2024 16:18:13 Vulval irritation 091815825 N90.89 - Advised use of lubricatio n as needed to prevent recurrence of vulvar and vaginal discomfort during and after intercours e [id number] MD Shruthi BARRERAhalto (FINISHING MACHINE OPERATOR [employer]) [address] [place] [address] 04/05/2024 15:44:45 04/08/2024 12:37:07 detection examination 62679165 Z32.01 - Recommende d vitamins- Pre-eclamp garland prophylaxi s with baby aspirin: not indicated- Recommende d avani products and OTC doxylamine and vitamin B6 for nausea/vom iting. If no improvemen t, patient to call or send Patient Portal message for prescripti on anti-nause a medication s.- Return to clinic in 4-6 weeks for initial OB visit with dating US Anxiety 90673876 F41.9 - On fluoxetine 20 mg daily, buspirone 15 mg, bupropion XL 150 mg daily- Has therapist- Advised patient okay to continue medication s in , as benefits outweigh risks [id number] [facility] (FINISHING MACHINE OPERATOR [employer]) [address] [place] [address] 05/17/2024 15:16:43 05/26/2024 14:19:01 Routine care 965749508 Z34.81 LABS- Routine labs: Up to date- Additional labs: N/A VACCINES - counseled on recommende d vaccines on 05/17/24- COVID: due at any time- flu (if in season): due- Tdap: due at 27+ weeks- RSV: due if between 32 and 36 weeks in Feb to Jun GENETIC TESTING - counseled on limitation s of testing and follow up if needed on 05/17/24- Carrier screen: declined- NIPT: ordered 05/17/24 (10w2d)- AFP: to be ordered between 15-20 weeks IMAGING- Dating US: 10w1d on 05/17/24, avg CRL = 3.30 cm- Anatomy US: to be performed between 18-22 weeks Anxiety 66695953 F41.9 - On fluoxetine 20 mg daily, buspirone 15 mg BID, bupropion XL 150 mg daily- Has therapist- Advised patient okay to continue medication s in , as benefits outweigh risks Maternal o besity complicating , childbirth and the puerperium, antepartum 9154937188 07 O99.211 - Pre-pregna ncy BMI 32, pre-pregna ncy weight 208 lbs- Recommende d weight gain during : 11-20 lbs- Given ACOG handout on obesity in with informatio n on healthy diet and physical activity during [id number] MD Erasmo Richard [address] [facility] [address] [facility] [place] [address] 06/14/2024 10:24:21 06/21/2024 09:57:29 Routine care 921099321 Z34.02 Yamile is a 19 y/o presenting @ 14w2d dated by US/LMP; here for routine OB exam. She has no significan t concerns today and reports normal antepartum symptoms of . She denies vaginal bleeding, vaginal discharge, loss of fluid, or contractio ns. She has not had a visit to ED or Triage since last appointmen t.-continu e PNV-RTC 4 weeks-star t ASA 81 mg for moderate risk of preeclamps ia Anxiety 09166445 F41.9 - On fluoxetine 20 mg daily, buspirone 15 mg BID- Has therapist- Advised patient okay to continue medication s in , as benefits outweigh risks Maternal o besity complicating , childbirth and the puerperium, antepartum 7340944552 07 O99.211 - Pre-pregna ncy BMI 32, pre-pregna ncy weight 208 lbs- Recommende d weight gain during : 11-20 lbs-start Aspirin 81 mg daily for moderate risk of preeclamps ia. [id number] MD Erasmo Ferro [address] IM [address] [facility] [address] [place] [address] 06/23/2024 15:13:21 07/03/2024 16:07:51 Viral syndrome 691648031 B34.9 - ongoing since yesterday- Encourage fluid intake, lemon and honey tea- Tylenol as needed for discomfort .- Cough drops as needed- Proper rest and hand hygiene- follow up as needed Tachycardia 3250992 R00. 0 Hr 135 on repeat 129, most likely related to feeling ill today. Plan to repeatWill monitor. Health Concerns Section Related Observation LastModified by Organization Detai ls LastModified Time None Recorded Concern Status LastModified by Organization Details LastModified Time None Recorded Advance Directives Directive None Recorded Payers Insurance Date Sequence Insurance Name Policy Number Policy Jenkins Covered Member ID Jenkins Member ID Guarantor Name 07/03/2024 1 [facility] ([facility]) [id number] Garrett Dale [id number] Yamile M Dale 01/24/2015 1 [facility] [id number] Garrett Dale [id number] Yamile M Dale 05/23/2024 1 [facility] - DOS PRIOR TO 2020 (MEDICAID REPLACEMENT - HMO) Yamile Hunter [id number] Yamile Peewee Dale 05/23/2024 1 [place] [employer]PARTMENT [employer] PUBLIC AID Yamile Hunter [id number] Yamile Peewee Hunter 10/19/2023 1 [facility] ([facility]) [id number] Garrett Hunter [id number] Yamile Hunter Notes Date Note Type Note Provider Name and Address Organization Details Recorded Time 04/05/2024 text/html Confirmation of - LMP: 03/06/24 (EGA 4w2d, JÚNIOR 12/11/24)- Certain of LMP? No- Initial positive test: 04/01/24- Irregular periods (<21 or >35 days)? No- Planned ? No- Desired ? Yes- Other parent involved? Yes - Chuck- Support person(s)? Chuck, mom- No nausea or vomiting. No constipation. More tired than usual.- Not on vitamins- Wants to be back on anxiety medicine. Was nervous to take anything while . Pre-eclampsia Risk Factor AssessmentHigh-risk Factors- History of pre-eclampsia, especially when accompanied by an adverse outcome? no- Multifetal gestation? TBD- Chronic hypertension? no- Pregestational DM1 or DM2? no- Renal disease? no- Autoimmune disease (e.g. SLE, antiphospholipid syndrome)? no- Combinations of multiple moderate-risk factors? no Moderate-risk Factors- Nulliparity? no- BMI >30? yes - pre-preg BMI 32- Family history of pre-eclampsia in mother or sister? no- Black person (due to social, rather than biological factors)? no- Lower income? no- 35 or more years old? no- Personal history factors (e.g. low weight or SGA baby, previous adverse outcome, >10-year interval)? no- In vitro conception? no LASHAUN SIEGEL MD Attn: Accounting,[address] [facility], [place], [address], [facility] 04/06/2024 21:37:45 05/17/2024 text/html See OB worksheet LASHAUN SIEGEL MD Attn: Accounting,[address] [facility], [place], [address], [facility] 05/19/2024 17:51:30 06/14/2024 text/html OB plan: 19 y/o ; JÚNIOR 12/11/2024 based on LMP supported by dating USPre- Weight: , BMI: elevated Was having nausea in the beginning. No nausea. Does have some cramping. Otherwise no concerns today and reports normal antepartum symptoms of . She denies vaginal bleeding, vaginal discharge, loss of fluid, or contractions. She has not had a visit to ED or Triage since last appointment. Still taking fluoxetine and buspirone after discussion with Dr. Rosario (pharmacist). Prior :-Vaginal delivery (at [facility])-No concerns for gHTN, gDM in prior . Pre-Eclampsia Risk: moderatePregnancy Risk Level: lowContinuity Resident:Problem List:-obesity-anxietyA [facility] INITIAL LABS Date: 05/17/2024lood Type: A Rh Type: positive Antibody Screen: negCBC: Hgb 13.8 Hct 40.3 WBC 8.9 Plts 250VDRL/RPR: non-reactive Hep B: negative HepC: non-reactive HIV: Non-reactiveVaginal Cultures: GC:neg; Chlamydia:neg;Trich:Pa p: Due, recommend PPRubella: immune Varicella: immuneCF: SS: consistent withUrine Dip normal Culture: normal UDS:not indicatedSequential/QU AD/RaexntmI28:neg; consistent with male Dating US: LMP: 03/06/2024 GA JÚNIOR: 12/11/2024 Patient is sure of dating.DUS: Date 05/17/2024 AUA: 10w1d JÚNIOR: 12/12/2024 Discrepancy <5 daysEDD: 12/11/2024ased on LMP supported by US Anatomy Scan: 26 weeks: DateGTT: ; 3HR GTTCBC: Hgb Hct WBC PltsHIV: RPRTdap: COVID: Flu RSVRhogam: Date: 36 weeks:Date:Vaginal Cultures: GC:; Chlamydia:;Trich:GBSLi mited US: Situational Awareness:Support Person/Partner/Other Parent(s):Siblings: 1Possible Baby Name(s):Willing to participate in group visits:Home visits ok:Established Dentist: Dental Visit in the last year:Regular Exercise Routine:Taking vitamin prior to : yesOpen to vaccination: Tdap: yes COVID: no Flu: no RSV: yesConsent for urine drug screen:Coyote:PHQ9: negative GAD7:ACES:Resilience:T rauma/PTSD screen SDOH:Planning to breastfeed: yes Circumcision yes Epidural undecided Post- contraception undecided Keren Zabala MD Attn: Accounting, [address] [place], [address], [facility] 06/20/2024 17:57:14 06/23/2024 text/html Yamile is a 19 yo F presenting at 15.4 weeks gestation with complaint of bilateral ear aches, body aches, sore throat, and congestion since yesterday morning. Patient reports emesis x2 this morning but no fever or chills, diarrhea or abdominal pain. Patient reports unknown sick contact. Hudson Kenney MD Attn: Accounting, [address] [place], [address], [facility] 06/28/2024 16:45:21 OBGyn Episode Ob Episode Information Episode Created Date Number of Fetuses Patient Bloodtype Patient rh Status Prepregnancy Weight lbs Domestic Partner Domestic Partner Phone Father Name Surveillance Sensor Officer Status 05/17/20 24 1 A Positive 208 Gaudencio Tangela r OPEN Fetus Data First Name Last Name Admitted to NICU Weight (g) Sex Living Outcome Pediatric Complications Fetus ID Race Codes Race Delivery Type [id number] Problems Problem Notes RISK FACTORS / PERTINENT HX- JÚNIOR 12/11/24 by LMP c/w 10w US- Pre-preg BMI 32, weight 208# - rec'd 11-20 # wt gain- Indication for preE PPx: N/ADELIVERY/ PLAN- Support person: Gaudencio- Anticipated delivery: - GBS PPx: TBD- Pain mgmt: TBD- Contraception: TBD- vaccines due? N/ANEWBORN INFO- Sex: TBD- Name: TBD- Feeding: TBD- Desires circumcision: TBD- Doctor: TBD- Maternal RSV vaccine given? N/A Problem Name Start Date End Date Resolution Snomed Code Not e Anxiety 10/19/2023 [id number] On fluoxe lana 20 mg daily, buspirone 15 mg BID, bupropion XL 150 mg daily. Maternal obesity complicating , childbirth and the puerperium, antepartum 05/19/2024 [id number] Pre- B MT 32, weight 208#. Recommended 11-20# weight gain. Júnior Calculation Initial Júnior Date Initial Exam Date Initial Exam Provider Initial Ultrasound Date Last Menstrual Period Date Ultra Sound Weeks Gestation 12/11/2024 05/17/2024 [email or web address] 05/17/2024 03/06/2024 10 Eighteen To Twenty Week Júnior Update Ultra Sound Date Fundal Height At Umbil Quickening Date Ultra Sound Latest Weeks Gestation Final Júnior Confirmed By Final Júnior Confirmed Date Final Júnior Date Ultra Sound Latest Days Gestation 0 [email or web address] 05/17/2024 12/12/19 25 0 Pre-charlotte Flowsheet Flowsheet Date 05/17/2024 Velasquez Score Blood Edema Fundus Height Fundus Units Glucose Ketones Leukocytes Nitrite Labor Signs Protein Cervic Dilation Cervic Effacement Cervic Station none none Type Weight in lbs Pre/Post Dialysis Refused With clothes 201.260779816512 BP Diastolic BP Location Tested BP Systolic BP Type 77 L arm 118 sitting Fetus Heart Rate Present A 166 Present Fetus Movement A No Comments - Concerns today: None. Naus ea is much improved.- OB ROS: No CTX, LOF, vaginal bleeding, BLE edema.- Exam: Cardiac - RRR, no m/r/g. Lungs - CTAB. No BLE edema.- Dating US performed with average CRL 3.30 cm (EGA 10w1d, JÚNIOR 12/12/24). Consistent with JÚNIOR 12/11/24 by LMP.- [email or web address] ordered. Advised patient of variable insurance coverage with private insurance and notified of [facility] pricing if not covered. Genetic testing consent signed and scanned into chart.- RTC: 4 weeks with [facility] for rest of OB care Flowsheet Date 06/12/2024 Velasquez Score Blood Edema Fundus Height Fundus Units Glucose Ketones Leukocytes Nitrite Labor Signs Protein Cervic Dilation Cervic Effacement Cervic Station Type Weight in lbs Pre/Post Dialysis Refused BP Diastolic BP Location Tested BP Systolic BP Type Fetus Heart Rate Present Fetus Movement Comments Flowsheet Date 06/14/2024 Velasquez Score Blood Edema Fundus Height Fundus Units Glucose Ketones Leukocytes Nitrite Labor Signs Protein Cervic Dilation Cervic Effacement Cervic Station neg none none trace none trace Type Weight in lbs Pre/Post Dialysis Refused With clothes 201.431760425229 BP Diastolic BP Location Tested BP Systolic BP Type 79 L arm 122 sitting Fetus Heart Rate Present A 155 Fetus Movement A Yes Comments Yamile is a 19 y/o pre senting @ 14w2d dated by US/LMP; here for routine OB exam. She has no significant concerns today and reports normal antepartum symptoms of . She denies vaginal bleeding, vaginal discharge, loss of fluid, or contractions. She has not had a visit to ED or Triage since last appointment.-continue PNV-RTC 4 weeks-start ASA 81 mg for moderate risk of preeclampsia Flowsheet Date 06/23/2024 Velasquez Score Blood Edema Fundus Height Fundus Units Glucose Ketones Leukocytes Nitrite Labor Signs Protein Cervic Dilation Cervic Effacement Cervic Station Type Weight in lbs Pre/Post Dialysis Refused With clothes 201.208865781970 BP Diastolic BP Location Tested BP Systolic BP Type 63 L arm 98 sitting 74 109 sitting Fetus Heart Rate Present Fetus Movement Comments Menstrual History Last Menstrual Date Menses Monthly On Bcp Conception Prior Menses Frequency Hcg Plus Date Menarche Onset Age 0903/06/2024 Genetic Screening And Infection History Question Response Note Patient's Age Will Be 35 Years Or Older At Estim ated Date of Delivery false Thalassemia (Prydeinig, Tunisian, Mediterranean, Or Background): MCV < 80 false Neural Tube Defect (Meningomyelocele, Spina Bifi da, Or Anencephaly) false Congenital Heart Defect false Down Syndrome false Marcos-Sachs (eg, Scientologist, Cajun, Canadian-Broseley) f alse Patria Disease false Sickle Cell Disease Or Trait () false Hemophilia Or Other Blood Disorders false Muscular Dystrophy false Cystic Fibrosis false Marion's Chorea false Mental Retardation/Autism false If Yes, Was Person Tested For Fragile X? false Other Inherited Genetic Or Chromosomal Disorder false Maternal Metabolic Disorder (eg, Type 1 Diabetes , PKU) false Patient Or Baby's Father Had A Child With Defects Not Listed Above false Recurrent Loss, Or A Stillbirth false Medications (including Suppl ements, Vitamins, Herbs, OTC Drugs), Illicit/Recreational Drugs, Alcohol true If Yes, Agent(s) And Strength/Dosage true Any Other Genetic History false Live With Someone With TB Or Exposed To TB false Patient Or Partner Has History Of Genital Herpes false Rash Or Viral Illness Since Last Menstrual Perio d false History Of STD, Gonorrhea, Chlamydia, HPV, Syphi lis false Other Infection History false History of HIV false History of Hepatitis false Prior GBS-infected child false Plans and Education First Trimester Discussed Date Discussion Item Discussion Note Discuss ed By 05/17/2024 Anticipated course of care [id number] 05/17/2024 Alcohol [id number] 05/17/2024 Screening for aneuploidy [facility] 05/17/2024 Nutrition counseling ; special diet; dietary precautions (mercury, listeriosis) [email or web address] 05/17/2024 Childbirth classes/hospital facilities [email or web address] 05/17/2024 HIV and other routine tests 05/17/2024 Risk factors identif ied by history 05/17/2024 Weight gain counseling [facility] 05/17/2024 Exercise [email or web address] 05/17/2024 Use of any medicatio ns (including supplements, vitamins, herbs, or OTC drugs) [email or web address] 05/17/2024 [email or web address] 05/17/2024 Sexual activity [id number] 05/17/2024 Tobacco/smoking cess ation counseling (ask, advise, assess, assist, and arrange) 05/17/2024 Illicit/recreational drugs d [email or web address] 05/17/2024 Dental care [email or web address] 05/17/2024 Travel [email or web address] 05/17/2024 Seat belt use [email or web address] 05/17/2024 Indications for ultrasonography [id number] 05/17/2024 Toxoplasmosis precautions (cats/raw meat) [email or web address] Second Trimester Discussed Date Discussion Item Discussion Note Discuss ed By Third Trimester Discussed Date Discussion Item Discussion Note Discuss ed By Delivery Information Delivery Date Delivery Type Labor Anesthesia Weeks Gestation Incision Type Labor Labor Length Hrs Delivered By Post Complications Tubal Sterilization Discharge Date Comments Discharge Information Feeding Method Contraceptive Method Maternal HG B and HCT Levels
--- OUTSIDE RECORDS SUMMARY | 2024-11-20 16:51 | XMS_ITS ---
Author Organization [facility] [employer] Review[employer] [facility] Address [address] [place] [address] [address] Care Team Providers Care Superintendent Pressure Name Role Phone Cynthia Syed Unavailable [phone] Chau Campbell Unavailable [phone] Social History Sex Assigned At : Social History Observation Description Sex Assigned At Female Encounters Encounter Location Date Provider Diagnosis [facility] [place] [address] [address] 05/15/2024 Chau Campbell Plan Of Treatment No Information Progress Notes * EZ MAGALLON MDOB:2005 (19 yo F)Acc No.[id number]:05/15/2024 Patient: Jerome EZ BOB Provider: Jerome Campbell LCPC :2005 A ge:19 Y S ex:Female Date:05/15/2024 Address:[address], [place] [address] Data: * Chief Complaints: * Assessment: Plan: * Treatment: * Procedure Codes: N STHR NO SHOW THERAPY * Billing Information: * Visit Code: * Procedure Codes: NSTHR NO SHOW THERAPY. * Electronic signature of Shasta Campbell LCPC on 11/20/2024 at 04:51 PM CDT Sign off status: Pending Signatures: No Ad Hoc Signature Added * Provider: Jerome Campbell LCPC Date: 07/16/2023 Generated for Duongi colin/Jeni/eTransmitting on: 0 11/20/2024 04:51 PM CDT
--- OUTSIDE RECORDS SUMMARY | 2024-11-20 16:52 | XMS_ITS | Clinical Summary ---
Author Organization [address] lt Address [address] [place] [address] Care Team Providers Care Mining Plant Operator Name Role Phone Dillon Suero MD Primary Care Provider Allergies No known active allergies Medications fluticasone propionate (FLONASE) 50 mcg/actuation nasal sprayIndications :Viral upper respiratory tract infection with cough Administer 2 sprays into each nostril daily 16 g 5 0 Active Additional Information Patient not taking.Reported on 11/18/2024 busPIRone (BUSPAR) 15 mg tablet Take 1 tablet (15 mg total) by mouth 2 (two) times a day Active FLUoxetine (PROzac) 20 mg capsule TAKE 1 CAPSULE BY MOUTH EVERY DAY FOR 90 DAYS Active amoxicillin (AMOXIL) 875 mg tabletIndication s:Right acute serous otitis media, recurrence not specified Take 1 tablet (875 mg total) by mouth 2 (two) times a day for 7 days 14 tablet 5 11/26/19 25 Active Active Problems Estimated Date of Delivery Comme nts Yes 12/11/2024 No known active problems Encounters Date Type Department Care Team Description 11/18/2024 7:30 PM CDT Office Visit [facility] [place] [address] [place] [address] Malathi Suero NP Right acute serous otitis media, recurrence not specified (Primary Dx); Cerumen debris on tympanic membrane of right ear from Last 3 Months Social History Tobacco Use Types Packs/Day Years Used Date Smoking Tobacco: Never Estimated Date of Delivery Comme nts Yes 12/11/2024 Sex and Gender Information Value Date Recorded Sex Assigned at Not on file Legal Sex Female 8:29 AM LEAVE COORDINATOR Gender Identity Not on file Sexual Orientation Not on file Obstetrics History Para Term AB IAB SAB Ectopic Multiple Livin g Live Births 1 Date Outcome GA Total Labor Labor/2nd/3rd Weight Sex Type Anes PTL Beverly A1 A5 Name Clin Current Last Filed Vital Signs Vital Sign Reading Time Taken Comments Blood Pressure 118/80 11/18/2024 7:30 PM CDT Pulse 104 11/18/2024 7:30 PM CDT Temperature 36.9 C (98.4 F) 11/18/2024 7:30 PM CDT Respiratory Rate 16 11/18/2024 7:30 PM CDT Oxygen Saturation 98% 11/18/2024 7:30 PM CDT Inhaled Oxygen Concentration - - Weight 101.6 kg (224 lb) 11/18/2024 7:30 PM CDT Height 165.1 cm (5' 5) 11/18/2024 7:30 PM CDT Body Mass Index 37.28 11/18/2024 7:30 PM CDT Plan of Treatment Health Maintenance Due Date Last Done Comments Cervical Cancer Screening 2003 Depression Screening 2003 Hepatitis C Screening 2003 Regular Well Visit/Exam 18-64 2021 Influenza Vaccine (Season Ended) 2025 04/11/2015, 04/11/2015, 04/17/2005 DTaP/Tdap/Td Vaccine (7 - Td or Tdap) 02/07/2025 02/07/2015, 01/10/2008, 04/17/2005, Additional history exists Hepatitis B Screening Completed 02/13/2004 , 02/13/2004, 2003, Additional history exists Pneumococcal vaccine <65 Aged Out 004, 2003, 2003 No longer eligible based on patient's age to complete this topic Varicella Vaccines Completed 01/10/2008, 04/17/2005 HPV Vaccines Completed 08/15/2015, 1110/2014, 02/07/2015 Meningococcal Vaccine Completed 02/13/2021, 015 Meningococcal B Vaccine Completed 03/18/2021, 02/13 Insurance [facility] CHO[facility] PLUS [employer] OOS Care Teams Mining Plant Operator Relationship Specialty Start Date End Date Dillon Suero MD PCP - General Pediatrics 08/01/19
--- OUTSIDE RECORDS SUMMARY | 2024-11-20 16:52 | XMS_ITS | Clinical Summary ---
Author Organization [facility] Address [address] [place] [address] Care Team Providers Care Bulk Truck Driver Name Role Phone Unavailable Primary Care Provider Unavailabl e Source Comments [facility],non-owned Affiliates and Associated Physician Practices is amultiple site organization consisting of ambulatory clinics and hospital sitesin [place], [place], [place] and [place]. This disclosure is being madepursuant to the Care Everywhere program and may not contain all information available regarding this patient. Last updated 18.[facility] Allergies No known active allergies Medications * Be aware that medications may not be up to date on this document. Alwaysverify current medications with the patient. No known medications Social History Tobacco Use Types Packs/Day Years Used Date Smoking Tobacco: Never Assessed Comments Unknown Sex and Gender Information Value Date Recorded Sex Assigned at Not on file Legal Sex Female 9:54 AM CLINICAL REGISTERED NURSE Gender Identity Not on file Sexual Orientation Not on file Last Filed Vital Signs Vital Sign Reading Time Taken Comments Blood Pressure 100/50 07/11/2010 7:33 PM CLINICAL REGISTERED NURSE Pulse 128 07/11/2010 7:33 PM CLINICAL REGISTERED NURSE Temperature 37.7 C (99.8 F) 07/11/2010 7:33 PM CLINICAL REGISTERED NURSE Respiratory Rate 18 07/11/2010 7:33 PM CLINICAL REGISTERED NURSE Oxygen Saturation 98% 07/11/2010 7:33 PM CLINICAL REGISTERED NURSE Inhaled Oxygen Concentration - - Weight 24.3 kg (53 lb 9.2 oz) 07/11/2010 4:45 PM CLINICAL REGISTERED NURSE Height - - Body Mass Index - - Plan of Treatment Health Maintenance Due Date Last Done Comments HIV SCREENING 2018 HPV VACCINE (1 - 3-dose series) 2018 CHLAMYDIA/GONORRHEA SCREENING 2019 MENINGOCOCCAL (Group B) VACC INE SHARED DECISION-MAKING (1 of 2 - Standard) 2019 HEPATITIS C SCREENING 05/09/2021 DTAP/TDAP/TD VACCINES (1 - Tdap) 2022 HEPATITIS B VACCINE (1 of 3 - 19+ 3-dose series) 2022 COVID-19 VACCINE (1 - 2023-2 5 season) 2024 DEPRESSION SCREENING 06/07/2024 INFLUENZA VACCINE (Season Ended) 2025 ZOSTER VACCINE (1 of 2) 2053 HIB VACCINE Aged Out No longer eligi ble based on patient's age to complete this topic MENINGOCOCCAL GROUPS A/C/Y/W VACCINE Aged Out No longer eligible b ased on patient's age to complete this topic PNEUMOCOCCAL VACCINE Aged Out No long er eligible based on patient's age to complete this topic Insurance Member Subscriber Plan / Payer (Ef fective for All Dates) Name:Yamile Hunter Relation to Subscriber:Child Name:DWIGHT HUNTER Subscriber ID:Not on file (Home) Address: [address] [place] [address] Payer ID:[id number] (NAIC) Type:[facility] Address: [facility] [id number] [address]
--- OUTSIDE RECORDS SUMMARY | 2024-11-20 16:52 | XMS_ITS | Patient Health Record ---
Author Organization [facility] [employer] Address [address] [facility] [address] [place] [address] Care Team Providers Care Congressional Aide Name Role Phone Cynthia Syed Unavailable [phone] AdrianChau Unavailable [phone] Allergies No Known Allergies Reason For Referral No Information Medications Medication SIG (Take, Route, Frequency, Duration) Notes Start Date End Date Status FLUoxetine HCl 20 MG 1 capsule Oral Once a day for 90 days Active buPROPion HCl ER (XL) 150 MG 1 tablet in the morning Orally Once a day for 90 days Active [facility] FE 1.5/30 (28) 1.5 MG-30 MCG (21)/75 MG (7) TABLET *Reorder from [employer] for eRx and Interaction Alerts* 10/15/2023 Active Social History Tobacco Use: Social History Observation Description Date Details (start date - stop date) Never Smoker NA - NA Sex Assigned At : Social History Observation Description Sex Assigned At Female Tobacco Control (Standard) Question Answer Notes Tobacco use: Nonsmoker AUDIT-C (Standard) Question Answer Notes Did you have a drink containing alcohol in the p ast year? No Interpretation Positive Problems Problem Type SNOMED Code ICD Code Onset Dates Problem Status W/U Status Risk Notes Problem Generalized anxiety disorder (77980609) Generalized anxiety disorder (F41.1) Active confirmed Problem Panic disorder (681723144) Panic disorder [episodic paroxysmal anxiety] without agoraphobia (F41.0) Active confirmed Problem Moderate recurrent major depression (82961233) MDD (major depressive disorder), recurrent episode, moderate (F33.1) Active confirmed Encounters Encounter Location Date Provider Diagnosis [facility], [facility] [address] [place] [address] 12/24/2023 Chau Campbell [facility], [facility] [address] [place] [address] 05/15/2024 Chau Campbell [facility], [facility] [address] [place] [address] 12/15/2023 Cynthia Kurminerva Generalized anxiety disorder F41.1 ; Panic disorder [episodic paroxysmal anxiety] without agoraphobia F41.0 and MDD (major depressive disorder), recurrent episode, moderate F33.1 [facility], [facility] [address] [place] [address] 01/12/2024 Cynthia Kurilla Generalized anxiety disorder F41.1 ; Panic disorder [episodic paroxysmal anxiety] without agoraphobia F41.0 and MDD (major depressive disorder), recurrent episode, moderate F33.1 [facility], [facility] [address] [place] [address] 01/25/2024 Chau Campbell Generalized anxiety disorder F41.1 [facility], [facility] [address] [place] [address] 02/14/2024 Cynthia Kurilla Generalized anxiety disorder F41.1 ; Panic disorder [episodic paroxysmal anxiety] without agoraphobia F41.0 and MDD (major depressive disorder), recurrent episode, moderate F33.1 [facility], [facility] [address] [place] [address] 03/08/2024 Cynthia Syed [facility], [facility] [address] [place] [address] 03/10/2024 Cynthia Kurilla Generalized anxiety disorder F41.1 ; Panic disorder [episodic paroxysmal anxiety] without agoraphobia F41.0 and MDD (major depressive disorder), recurrent episode, moderate F33.1 [facility], [facility] [address] [place] [address] 04/07/2024 Cynthia Syed [facility], [facility] [address] [place] [address] 09/08/2024 Chau Campbell [facility], [facility] [address] [place] [address] 01/12/2024 Cynthia Syed [facility] [email or web address] [facility] [address] [place] [address] 01/12/2024 [facility] [address] [place] [address] 04/03/2024 [facility]ed [facility] [address] [place] [address] 04/17/2024 Cynthia [facility]ed [facility] [address] [place] [address] 06/22/2024 Cynthia Syed Generalized anxiety disorder F41.1 and MDD (major depressive disorder), recurrent episode, moderate F33.1 Assessments Encounter Date Diagnosis (ICD Code) Assessment Notes Treatment Notes Treatment Clinical Notes Section Notes 12/15/2023 Generalized anxiety disorder (ICD-10 - F41.1) 01/25/2024 Generalized anxiety disorder (ICD-10 - F41.1) 17 year old single but engaged to be female seen today, accompanied, by mother for initial assessment to start therapy. Client reported that she has seen Cynthia Augustine once for medication therapy. Client endorses a hx of anxiety and panic attacks(three times a day before starting medication). Believes she has suffered from anxiety and panic attacks since 2019 if not longer. Client stated that she has always been a worrier just like her father. Client when asked what she worries the most about stated, that she worries about the future, her one year old daughter, and two year old relationship with father of their baby. Client added that she does not like being alone due to fear of something bad happening to her and one year old daughter. Hx of depression denied by client but added that father and an older sister both suffer anxiety. No psych admissions reported by client or out patient therapy. Stated she was afraid of going therapy. Noted that she worries about too much about what people about her. Client was born and raised in the [facility] to parents who have been 20 years. Client is the youngest of three, one bio sister and one half brother. Described childhood as fine although I was bullied by my sister. Relationship with parents is too good and added that she needs to cut the cord. Client has a one year old daughter with boyfriend of two years. 02/14/2024 Generalized anxiety disorder (ICD-10 - F41.1) 01/12/2024 Generalized anxiety disorder (ICD-10 - F41.1) 03/10/2024 Generalized anxiety disorder (ICD-10 - F41.1) 06/22/2024 Generalized anxiety disorder (ICD-10 - F41.1) 06/22/2024 MDD (major depressive disorder), recurrent episode, moderate (ICD-10 - F33.1) 03/10/2024 Panic disorder [episodic paroxysmal anxiety] without agoraphobia (ICD-10 - F41.0) 01/12/2024 Panic disorder [episodic paroxysmal anxiety] without agoraphobia (ICD-10 - F41.0) 02/14/2024 Panic disorder [episodic paroxysmal anxiety] without agoraphobia (ICD-10 - F41.0) 12/15/2023 Panic disorder [episodic paroxysmal anxiety] without agoraphobia (ICD-10 - F41.0) 12/15/2023 MDD (major depressive disorder), recurrent episode, moderate (ICD-10 - F33.1) 02/14/2024 MDD (major depressive disorder), recurrent episode, moderate (ICD-10 - F33.1) 01/12/2024 MDD (major depressive disorder), recurrent episode, moderate (ICD-10 - F33.1) 03/10/2024 MDD (major depressive disorder), recurrent episode, moderate (ICD-10 - F33.1) Common side effects to SSRI medications include headaches, dry mouth/eye, GI upset (including indigestion, nausea, diarrhea), sleeping problems (insomnia or drowsiness), decreased libido, blurred vision, dizziness. Generally, side effects will subside or lessen with time and are common during drug initiation and dose changes. If they persist please contact the office. Common side effects of Wellbutrin include insomnia, increased anxiety, nausea, dizziness, decreased appetite, restlessness, irritability and anger, increased sweating or hot flashes, tremors, joint pain. Wellbutrin is not recommended in individuals with a history of seizures. If side effects persist, please contact the office. 12/15/2023 Other Overall stable, continue current medications. Will start increased dose 15mg buspar when 10mg are out. Patient educated on all medications including potential benefits, side effects, risks. Educated on proper dosing schedule and importance of compliance. 01/12/2024 Other Stable, continue current medications. Refills sent in. Patient educated on all medications including potential benefits, side effects, risks. Educated on proper dosing schedule and importance of compliance. 01/25/2024 Other Client participated in individual psychotherapy related to her hx of anxiety. Based on today's session continued psychotherapy is recommended with no changes to treatment plan. Client presented to session well groomed and fully oriented with no risk of harm to self or others. Client verbal and engaged through out session. Reported upon presentation that she has been okay sine last seen on 09.16.2023. Added however that she has been off work for the past two weeks as a result of having gotten suspended for an argument she had with general service officer. Moreover has been stressed this past week due to planning birthday libertarian for two year old daughter. Session accordingly addressed and challenged client's beliefs which have supported and fueled her anxiety. Noted that she bought a book that helps her monitor her moods. Client receptive to session feedback. Next session in three weeks. 17 year old single but engaged to be female seen today, accompanied, by mother for initial assessment to start therapy. Client reported that she has seen Cynthia Mckoyag once for medication therapy. Client endorses a hx of anxiety and panic attacks(three times a day before starting medication). Believes she has suffered from anxiety and panic attacks since 2019 if not longer. Client stated that she has always been a worrier just like her father. Client when asked what she worries the most about stated, that she worries about the future, her one year old daughter, and two year old relationship with father of their baby. Client added that she does not like being alone due to fear of something bad happening to her and one year old daughter. Hx of depression denied by client but added that father and an older sister both suffer anxiety. No psych admissions reported by client or out patient therapy. Stated she was afraid of going therapy. Noted that she worries about too much about what people about her. Client was born and raised in the [facility] to parents who have been 20 years. Client is the youngest of three, one bio sister and one half brother. Described childhood as fine although I was bullied by my sister. Relationship with parents is too good and added that she needs to cut the cord. Client has a one year old daughter with boyfriend of two years. 02/14/2024 Other Start Wellbutrin 150mg daily for mood, motivation. Patient educated on all medications including potential benefits, side effects, risks. Educated on proper dosing schedule and importance of compliance. Continue counseling with Chau. 03/10/2024 Other Stable, continue current medications. Patient educated on all medications including potential benefits, side effects, risks. Educated on proper dosing schedule and importance of compliance. Continue counseling with Chau Plan Of Treatment No Information Insurance Providers Payer Name Payer Address Payer Phone Subscriber Number Group Number Insured Name Patient Relationship to Insured Coverage Start Date Coverage End Date [facility] [address] [place] [address] [id number] CHELY MAGALLON Child - Insured has Financial Responsibility Medical (General) History Medical History History ICD Code Problems: Generalized anxiety disorder Panic disorder
--- OUTSIDE RECORDS SUMMARY | 2024-11-20 16:52 | XMS_ITS | Referral Summary ---
Author Organization [address] Address [address] [place] [address] Care Team Providers Care Piercing Specialist Name Role Phone Dillon Suero MD Primary Care Provider Encounters Date Type Department Care Team Description 11/18/2024 7:30 PM CDT Office Visit [facility] [place] [address] [place] [address] Malathi Suero NP Right acute serous otitis media, recurrence not specified (Primary Dx); Cerumen debris on tympanic membrane of right ear from Last 3 Months Allergies No known active allergies Medications fluticasone [...] nts Yes 12/11/2024 No known active problems Social History Tobacco Use Types Packs/Day Years Used Date Smoking Tobacco: Never Estimated Date of Delivery Comme nts Yes 12/11/2024 Sex and Gender Information Value Date Recorded Sex Assigned at Not on file Legal Sex Female 8:29 AM CAMP DIRECTOR Gender Identity Not on file Sexual Orientation [...] 11/18/2024 7:30 PM CDT Plan of Treatment Not on file Insurance [facility] CHOICE PLUS [facility] HMO/PPO Address: [facility] [address] [place] [address] [employer] Care Teams Piercing Specialist Relationship Specialty Start Date End Date Dillon Suero MD PCP - General Pediatrics 08/01/19
--- OUTSIDE RECORDS SUMMARY | 2024-11-20 16:52 | XMS_ITS | Clinical Summary ---
Author Organization [facility] Address [address] [place] [address] Phone Care Team Providers Care Adolescent Psychiatrist Name Role Phone Gareth Stevens MD Primary Care Provider [phone] Allergies No known active allergies Medications ondansetron (ZOFRAN-ODT) 4 MG TABLET DISPERSIBLE Take 1 Tablet by mouth every 6 hours as needed for Nausea - 1st line. 5 Tablet 04/20/2023 Active Social History Tobacco Use Types Packs/Day Years Used Date Smoking Tobacco: Never Smokeless Tobacco: Never Tobacco Cessation:Counseling Given: Not Answered Alcohol Use Standard Drinks/Week Comments Never 0 (1 standard drink = 0.6 oz pur e alcohol) Comments No Sex and Gender Information Value Date Recorded Sex Assigned at Not on file Legal Sex Female 11:08 PM LINING MAKER Gender Identity Not on file Sexual Orientation Not on file Last Filed Vital Signs Vital Sign Reading Time Taken Comments Blood Pressure 110/71 04/20/2023 11:15 PM LINING MAKER Pulse 129 04/20/2023 11:15 PM LINING MAKER Temperature 37.1 C (98.7 F) 04/20/2023 8:59 PM LINING MAKER Respiratory Rate 18 04/20/2023 11:15 PM LINING MAKER Oxygen Saturation 98% 04/20/2023 11:15 PM LINING MAKER Inhaled Oxygen Concentration - - Weight 82.6 kg (182 lb) 04/20/2023 8:59 PM LINING MAKER Height 167.6 cm (5' 6) 04/20/2023 8:59 PM LINING MAKER Body Mass Index 29.38 04/20/2023 8:59 PM LINING MAKER Plan of Treatment Health Maintenance Due Date Last Done Comments Hepatitis C Virus (HCV) Screening 2003 SARS-COV-2 Immunization ( season) 2024 Pap Smear 2024 Influenza Immunization (Season Ended) 2025 04/11/2015, 04/17/2005 Respiratory Syncytial Virus (RSV) Immunization (Adult) (1 - 1-dose 75+ series) 2078 Hepatitis B Immunization Completed 004, 02/13/2004, 2003, Additional history exists Pneumococcal Immunization Combined Aged Out 02/13/2004, 2003, 2003 No longer eligible based on patient's age to complete this topic Measles Mumps Rubella (MMR) Immunization Discontinued 01/10/2008, 04/17/2005 Polio (IPV) Immunization Discontinued 008, 02/13/2004, 02/13/2004, Additional history exists Varicella Immunization Discontinued 01/10/2008, 2004 Hepatitis A Immunization Discontinued 01/04/2009, 10/2007 DTaP/Tdap/Td Immunization Discontinued 2014, 01/10/2008, 04/17/2005, Additional history exists TdaP Immunization Completed 02/07/2015 Human Papillomavirus (HPV) Immunization Completed 08/15/2015, 04/11/2015, 02/07/2015 Meningococcal Immunization (ACWY) Completed 02/13/2021, 02/07/2015 Meningococcal B Immunization Completed 03/18/2021, 02/13/2021 Rotavirus Immunization Aged Out No lo nger eligible based on patient's age to complete this topic Insurance Care Teams Adolescent Psychiatrist Relationship Specialty Start Date End Date Gareth Stevens MD [address] [place] [address] PCP - General Family Medicine 04/20/23
--- OUTSIDE RECORDS SUMMARY | 2024-11-20 16:52 | XMS_ITS ---
Author Organization [facility] [employer] [facility] Address [facility] [address] [address] Care Team Providers Care Otr Company Driver Name Role Phone Cynthia Syed Unavailable [phone] Chau Campbell Unavailable [phone] Social History Sex Assigned At : Social History Observation Description Sex Assigned At Female Encounters Encounter Location Date Provider Diagnosis [facility] [employer] [place] [address] [facility] [address] [address] 05/10/2024 Chau Campbell Plan Of Treatment No Information Progress Notes * EZ MAGALLON MDOB:2005 (19 yo F)Acc No.[id number]:05/10/2024 Patient: Jerome ZE BOB Provider: Jerome Campbell LCPC :2005 A ge:18 Y S ex:Female Date:05/10/2024 Address:[address] [place] [facility] Data: * Chief Complaints: * Assessment: Plan: * Treatment: * Billing Information: * Visit Code: * Procedure Codes: * Electronic signature of Shasta Campbell LCPC on 11/20/2024 at 04:51 PM CDT Sign off status: Pending Signatures: No Ad Hoc Signature Added * Provider: Jerome Campbell LCPC Date: 1 07/11/2023 Generated for Printi ng/Faxing/eTransmitting on: 0 11/20/2024 04:51 PM CDT
--- OUTSIDE RECORDS SUMMARY | 2024-11-20 16:52 | XMS_ITS | Encounter Summary ---
Author Organization [facility] Healthcare Address [address] [place] [address] Care Team Providers Care Classifier Tender Name Role Phone Dillon Suero MD Primary Care Provider Reason for Visit * Reason Comments Earache Right eat pain. Symp toms started 2 days ago. Pt is 36 weeks . Nothing otc Encounter Details Date Type Department Care Team (Late st Contact Info) Description 11/18/2024 7:30 PM CDT Office Visit [facility] [place] [address] [place] [address] Malathi Suero NP [address] [facility] [place] [address] Right acute serous otitis media, recurrence not specified (Primary Dx); Cerumen debris on tympanic membrane of right ear Social History Tobacco Use Types Packs/Day Years Used Date Smoking Tobacco: Never Estimated Date of Delivery Comme nts Yes 12/11/2024 Sex and Gender Information Value Date Recorded Sex Assigned at Not on file Legal Sex Female 8:29 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 Take Tylenol as directed for fever and/or discomfort. A warm (not hot) heating pad held over the ear can also help relieve the pain from the earache. Youshould use a thin cloth such as a dry washcloth between your skin and the heating pad. Follow up with your Primary Care Physician in 2 weeks for ear recheck or sooner if symptoms worsen or are not improving as planned. Dlzm-rrm-[id number] Medications Safe to Take During Pain Relief Tylenol or acetaminophen (plain/extra strength) for mild discomfort Caution: do not take aspirin (Anacin, Yuriy) or ibuprofen (Advil, Motrin). Medicine for Digestive Upsets Antacids (Tums, Rolaids, Mylanta, Maalox, Pepcid, Prevacid) Simethicone (Gas-X, Mylicon for gas pain, Gaviscon) Immodium or BRAT diet (bananas, rice, applesauce, toast or tea) for diarrhea Medicine for Coughs/Colds Guaifenesin (Robitussin??) Guaifenesin plus dextromethorphan (Robitussin-DM??) Cough drops Vicks VapoRub?? Acetaminophen Allergy Relief Tylenol or acetaminophen (plain/extra strength) is OK Chlorpheniramine antihistamine alone (chlor-Trimetron) Benadryl tablets Saline nasal spray Neti-pot or sinus rinse Claritin, Zyrtec, Crystal Options for Constipation Fiber can be used regularly (Metamucil??, MiraLax??, Citrucel??, BeneFiber??) Laxatives can be used occasionally (Colace??, Dulcolax??) Tucks for hemorrhoids Mix of Prune juice, OJ, 7-UP?? - equal parts Other Things You May Have Worried About That Also Appear to Be Safe Nutrasweet?? (1-2 servings per day) One or two cups of coffee per day Nix for head lice Perms Sunscreen Hair coloring products Pedicures Mosquito repellent containing DEET As always, check with your OBGYN if you have any questions on medications that are safe in documented in this encounter Ordered Prescriptions Prescription Sig Dispense Quantity Refills Last Filled Start Date End Date amoxicillin (AMOXIL) 875 mg tabletIndications: Right acute serous otitis media, recurrence not specified Take 1 tablet (875 mg total) by mouth 2 (two) times a day for 7 days 14 tablet 11/18/2024 11/25/2024 documented in this encounter Progress Notes * Malathi Suero NP - 11/18/2024 7:30 PM CDT Images from the original note were not included. This patient has verbally consented to recording this visit in order to utilize AI technology in generating this note. Subjective/Objective Patient ID: Yamile Hunter is a 19 y.o. female. Chief Complaint Earache (Right eat pain. Symptoms started 2 days ago. Pt is 36 weeks . Nothing otc) History of Present Illness Yamile Hunter is a 19 year old female who presents with right ear pain and dizziness. She has been experiencing right ear pain for the past two days, with today being the most severe. There is no drainage from the ear, and she has not taken any gfkf-gwv-hwgsbzq medications for her symptoms. She also experiences dizziness but has no fever. She has not experienced any runny nose or nasal congestion, except occasionally in the morning due to the cold in her house. She mentions recent swimming activities and wonders if this could be related to her ear pain, although she notes that the earcanal does not hurt. She is currently 36 weeks and 5 days and is expecting a boy. All systems reviewed and are negative or non contributory for this patient's presentation today other than as stated in the HPI. Physical Exam Vitals reviewed. Constitutional: General: She is not in acute distress. Appearance: Normal appearance. She is well-developed. She is not ill-appearing. HENT: Head: Normocephalic. Right Ear: Ear canal and external ear normal. No swelling or tenderness. A middle ear effusion (yellow) is present. There is impacted cerumen (Cerumen debris on TM). Tympanic membrane is injected. Left Ear: Tympanic membrane, ear canal and external ear normal. Nose: No congestion or rhinorrhea. Right Sinus: No maxillary sinus tenderness or frontal sinus tenderness. Left Sinus: No maxillary sinus tenderness or frontal sinus tenderness. Mouth/Throat: Lips: Aucilla. Eyes: General: Right eye: No discharge. Left eye: No discharge. Conjunctiva/sclera: Conjunctivae normal. Cardiovascular: Rate and Rhythm: Normal rate. Pulmonary: Effort: Pulmonary effort is normal. No respiratory distress. Breath sounds: Normal air entry. Musculoskeletal: Cervical back: Neck supple. Lymphadenopathy: Head: Right side of head: No tonsillar adenopathy. Left side of head: No tonsillar adenopathy. Cervical: No cervical adenopathy. Skin: General: Skin is warm and dry. Findings: No rash. Neurological: Mental Status: She is alert and oriented to person, place, and time. Mental status is at baseline. Psychiatric: Attention and Perception: Attention normal. Mood and Affect: Mood normal. Behavior: Behavior normal. Behavior is cooperative. Thought Content: Thought content normal. Judgment: Judgment normal. Vitals: 11/18/24 1930 BP: 118/80 Pulse: 104 Resp: 16 Temp: 36.9 ??C (98.4 ??F) TempSrc: Temporal SpO2: 98% Weight: 101.6 kg (224 lb) Height: 165.1 cm (5' 5) Assessment/Plan Assessment & Plan Otitis Media with Effusion Fluid behind the eardrum with earwax, likely infection. Dizziness present. -Attempted to remove cerumen with irrigation. Patient did not tolerate procedure well. Procedure terminated. - Prescribed amoxicillin, twice daily for seven days with meals. - Recommended Zyrtec or Claritin for fluid management. - Advised Tylenol for pain relief. - Provided handout on -safe medications. -Return to clinic if symptoms persist or worsen Diagnoses and all orders for this visit: Right acute serous otitis media, recurrence not specified (H65.01) (Primary) - amoxicillin (AMOXIL) 875 mg tablet; Take 1 tablet (875 mg total) by mouth 2 (two) times a day for7 days Cerumen debris on tympanic membrane of right ear (H61.21) No results found for this or any previous visit (from the past 4 hours). Disposition Treatment plan including expectations, follow up, and return precautions discussed with patient/parent, verbalizes understanding. Medication dosage, use, and potential adverse reactions discussed with patient/parent. Advised to follow up with PCP if symptoms do not resolve as expected or sooner if condition worsens. Signs/symptoms warranting ER evaluation reviewed. Patient and/or guardian was given an opportunity to ask questions, questions answered. Malathi Suero NP documented in this encounter Plan of Treatment Not on file documented as of this encounter Visit Diagnoses Diagnosis Right acute serous otitis media, recurrence not specified- Primary Cerumen debris on tympanic membrane of right ear documented in this encounter Historical Medications * This list may reflect changes made after this encounter. FLUoxetine (PROzac) 20 mg capsule TAKE 1 CAPSULE BY MOUTH EVERY DAY FOR 90 DAYS busPIRone (BUSPAR) 15 mg tablet Take 1 tablet (15 mg total) by mouth 2 (two) times a day added in this encounter Care Teams Classifier Tender Relationship Specialty Start Date End Date Dillon Suero MD PCP - General Pediatrics 08/01/19 documented as of this encounter
[2024-11-20 17:36] VITALS: BMI 36.3
--- NOTE | 2024-11-20 17:56 | PC.NURSE ---
Jacquelyn Benjamin called [phone] to update that the baby went through a sleep cycle. Baby now reactive with acceleration present. Jacquelyn Benjamin okay with discharging pt at this time.
--- NOTE | 2024-11-22 08:36 | PM.OBTRLD ---
OB - Triage/Final Diagnosis Visit Information Date of evaluation: 11/20/24 Reason for evaluation: threatened labor Comments/Additional reasons for admission: I have assessed the risk for this patient, Yamile Vides Radhanicoel, and determined that she would benefit from observation care. Evaluation Laboratory results: Laboratory Tests 11/20/24 15:58 Urine Color Yellow Urine Appearance Clear Urine pH 7.0 Ur Specific [place] 1.014 Urine Protein Negative Urine Glucose (UA) Negative Urine Ketones Trace H Ur Blood (Man) Negative Urine Nitrate Negative Urine Bilirubin Negative Urine Urobilinogen 0.2 Leukocyte Esterase Rfl Negative
== END 2024-11-20 18:03 | disposition home or self-care (01) ==
PROVIDERS: Advanced Practice Midwife; Admitting Provider Obstetrics & Gynecology; PCP Nurse Practitioner Adult Health; Visit Provider Obstetrics & Gynecology
DX: O47.1 False labor at or after 37 completed weeks of gestation (principal); Z3A.37 37 weeks gestation of pregnancy
CPT/HCPCS: 81003; G0378; G0379

== ENCOUNTER 2024-12-01 08:23 | Observation (INO) | payer OTHER, SELFPAY ==
--- NOTE | 2024-12-01 10:37 | OBADM ---
This patient, Yamile Hunter, admitted to the OB room Labor/Delivery/Recovery 106 for observation. Patient/family oriented to hospital policies and general routines including ID bracelet, bed and alarms, visiting hours, pain management, procedures, bathroom and other care routines, personal items, smoking policy, room service/diet, and visiting hours. Patient/Family are encouraged to report perceived risks to care and to ask questions if they do not understand what they are told or what they should do.
--- NOTE | 2024-12-05 07:19 | PM.OBTRLD ---
OB - Triage/Final Diagnosis Visit Information Date of evaluation: 12/01/24 Reason for evaluation: threatened labor Comments/Additional reasons for admission: I have assessed the risk for this patient, Yamile Hunter, and determined that she would benefit from observation care.
== END 2024-12-01 10:35 | disposition home or self-care (01) ==
PROVIDERS: Admitting Provider Obstetrics & Gynecology; Visit Provider Obstetrics & Gynecology
DX: O47.1 False labor at or after 37 completed weeks of gestation (principal); Z3A.38 38 weeks gestation of pregnancy
CPT/HCPCS: G0378; G0379

== ENCOUNTER 2024-12-01 12:44 | Inpatient (IN) | payer OTHER, MEDICAID, SELFPAY ==
[2024-12-01] VITALS (11 sets, daily range): BP systolic 105–135; BP diastolic 60–80; PULSE 73–120; RESP 16–18; TEMP 36.8–37.2; O2SAT 98–100
[2024-12-01 13:07] LABS: Basophils Percent Auto 0.2 % (0.2-1.2); Eosinophils Absolute Auto 0.1 K/mm3 (0-0.3); Eosinophils Percent Auto 0.5 % (0-4.4); Hematocrit 36.2 % (37.0-47.0); Hemoglobin 11.9 g/dL (12.0-15.0); Immature Granulocyte Absolute 0.05 K/mm3 (0.00-0.031); Immature Granulocyte Percent A 0.4 % (0-0.5); Lymphocytes Absolute Auto 2.24 K/mm3 (0.9-3.2); Lymphocytes Percent Auto 18.5 % (18.3-44.2); Mean Corpuscular HGB Conc 32.9 g/dl (32-36); Mean Corpuscular Volume 88.1 fl (80-100); Mean Platelet Volume 11.3 fl (7.4-10.4); Monocytes Absolute Auto 0.8 K/mm3 (0.1-0.6); Monocytes Percent Auto 6.6 % (2.6-8.5); Neutrophils Percent Auto 73.8 % (45.5-73.1); Platelet Count Result 260 k/mm3 (150-375); Red Blood Count 4.11 M/mm3 (4.2-5.4); Red Cell Distribution Width 14.3 % (11.5-14.5); White Blood Count 12.1 K/mm3 (4.5-10.0)
[2024-12-01] MEDS: fentaNYL CITRATE INJ (*CRX) 100 MCG/2 ML VIAL IV PUSH (13:13)
[2024-12-01] MEDS: OXYTOCIN 30 UNITS/NS 500 ML 30 UNITS/500 ML BAG 999 UNITS IV CONT (13:14)
--- NOTE | 2024-12-01 13:22 | WPDOBADMIT ---
Obstetrics - Admit Note Admission Note: record reviewed. No pertinent additions to the history and/or any subsequent changes in the physical findings that are not consistent with the expected course of the were found. Additions to the history and/or subsequent changes in the physical findings follow. SROM, active labor
--- NOTE | 2024-12-01 13:22 | PM.OBPRVD ---
OB - Vaginal Delivery Note Procedure Delivery date: 12/01/24 Delivery monitor: External FHT and External Uterine Route of delivery: Episiotomy description: None Laceration Description: None Specimen: Yes Quantitative Blood Loss (ml): 75 Anesthesia type: None Disposition: Floor Complications: No immediate complications Baby Date of : 12/01/24 Time of : 13:11 Gestational Age by Date: 38 Infant gender: Male Weight (pounds): 7 Weight (ounces): 13 presentation: vertex position: Left Occiput Anterior Placenta delivery description: Spontaneous Cord Vessel Description: 3 Vessels, Nuchal Cord (x1), Clamped/Cut and Delayed Cord Clamping score one minute: 9 score five minutes: 9
--- NOTE | 2024-12-01 13:58 | LDADM ---
This patient, Yamile Hunter, was admitted to Labor/Delivery/Recovery 106 on 12/01/24 at 12:44. Plans for labor, pain management and were discussed with patient. Patient/family oriented to hospital policies and general routines including ID bracelet, bed and alarms, visiting hours, pain management, procedures, bathroom and other care routines, personal items, smoking policy, room service/diet and guest tray routines, infant security routines, and visiting hours. Patient/Family are encouraged to report perceived risks to care and to ask questions if they do not understand what they are told or what they should do. See OBIX for further documentation.
[2024-12-01 14:10] LABS: Syphilis IgG/IgM Antibody Non-Reactive (Nonreactive)
--- NOTE | 2024-12-01 15:18 | PC.NURSE ---
Patient transferred to post room #286 via wheelchair. Support person present. Oriented to unit, room, information board, rooming in, admission packet and security measures. Patient verbalizes understanding.
--- NOTE | 2024-12-01 18:30 | PC.NURSE ---
Consulted with patient to assess needs related to . Discussed with mother her successes, concerns and any questions she has. Mother plans to put baby to breast, use a breast pump and also bottle feed formula, she would like for father of the baby to be able to feed. We reviewed working with the , supporting breast, protecting her nipples with an optimal deep latch, good positioning, and good hand washing. Encouraged understanding the benefits of skin to skin, responding to feeding cues, frequencies of feeding 8-12 times in 24 hours (approximately 2-3 hours), duration of feedings, milk production, intake/output feeding sheet and signs of adequate intake encouraging swallowing at the breast. Reviewed positioning and alignment, supporting breast, off-centered (asymmetrical latch) and leading with the chin with big, open, wide gape. Infant latched optimally to the [left] breast in [cross cradle] position with a nipple shield, that was given during baby's first feeding from nursery RN, mother has bilateral flat nipples. Education given to the mother of how to visualize the suckling (with good rocking jaw motion) swallows (dropping of the lower jaw) and how to listen for drinking at the breast (the ka sound). The was [able] to maintain latch without discomfort to mother. Nipple care reviewed with optimal latch, good positioning and using clean hands when touching her breast. With regards to nipple shield use, we reviewed good handwashing, cleaning the nipple shield and the appropriate way to apply and use as a tool. Discussed with mom the nipple shield precautions, possible complications associated with the risks and benefits. Reviewed practicing with a nipple shield, and then without, and how to protect the milk supply and production. Mother requested a hospital breast pump to use while here, she does have her own breast pump at home. Instructions given on cleaning, care, usage, that there should be no pain, pumping schedule for milk production, collection, and storage of human milk. Patient was assessed for correct placement, flange size (both nipples measured 17mm, she will use the size 21 flange), to pump for comfort and nipple stretching/stimulation for adequate milk production after each using the nipple shield. Parents are encouraged to record the pumping schedule on the feeding sheet.?Mother voiced understanding of the education shared along with mom/baby guide and the pump measurement, flange fit handout for additional resource information. Mother voiced understanding of the education shared, to call for assistance if the infant does not latch or if there is discomfort with . Reported to the Primary RN.
[2024-12-01] MEDS: IBUPROFEN 600 MG TABLET PO (21:54)
[2024-12-01] MEDS: ACETAMINOPHEN 325 MG TABLET 650 MG PO (23:50)
[2024-12-02 04:49] LABS: Hematocrit 31.6 % (37.0-47.0); Hemoglobin 10.2 g/dL (12.0-15.0)
[2024-12-02 04:57] VITALS: BP 120/74; PULSE 86; RESP 16; TEMP 36.6; O2SAT 100
[2024-12-02] MEDS: IBUPROFEN 600 MG TABLET PO (08:09)
[2024-12-02] MEDS: MULTIVIT/MIN/PREN/FOL AC/IRON TABLET 1 TAB PO (08:10)
[2024-12-02 08:27] VITALS: BP 106/61; PULSE 79; RESP 16; TEMP 36.8; O2SAT 99
--- NOTE | 2024-12-02 08:50 | PC.NURSE ---
Introductions were made, then consulted with patient to assess needs related to . Discussed with mother her?plans to feed?her and the?experience so far. She says that things are going well. Resources provided for inpatient and outpatient services with the feeding sheet, mom/baby guide and name written on the communication board. Mother voiced understanding of information and will call if there is a request for assistance. Reported to the Primary RN.
[2024-12-02 12:04] VITALS: BP 116/60; PULSE 86; RESP 16; TEMP 36.8; O2SAT 99
--- NOTE | 2024-12-02 12:20 | P.DS_ITS ---
DS: Admitting Diagnosis Discharge Date 12/03/2019 Admitting Diagnosis Term DS: Discharge Diagnosis Discharge Diagnosis (1) Term delivered: Code(s): O80 - Encounter for full-term uncomplicated delivery Status: Acute OB - DS: Summary OB Procedures : None OB Procedures Intrapartum: Spontaneous Vag Delivery OB Procedures: : None Peripartum Data Laceration Description: None Episiotomy description: None Time Spent with Patient Time attestation: Total time spent providing and/or coordinating discharge services: DS: Data Data Completed and Pending Labs on day of discharge: Labs from last 24 hours 12/02/24 12/01/24 04:09 12:59 WBC 12.1 H RBC 4.11 L Hgb 10.2 L 11.9 L Hct 31.6 L 36.2 L MCV 88.1 MCH 29.0 MCHC 32.9 RDW 14.3 Plt Count 260 MPV 11.3 H Immature Gran % (Auto) 0.4 Neut % (Auto) 73.8 H Lymph % (Auto) 18.5 [place] % (Auto) 6.6 Eos % (Auto) 0.5 Baso % (Auto) 0.2 Lymph # (Auto) 2.24 [place] # (Auto) 0.8 H Eos # (Auto) 0.1 Baso # (Auto) 0.0 Abs Immat Gran (auto) 0.05 H Absolute Neuts (auto) 9.0 H Absolute Nucleated RBC 0.000 Nucleated RBC % 0.0 Syphilis IgG/IgM Ab Non-reactive Blood Type A Positive Antibody Screen Negative Discharge Plan Discharge Consulting providers: Olena Benjamin Discharging Clinician: Kvng Powell Patient Disposition: Home Activity: pelvic rest Diet: regular Patient Instructions: Antibiotic Form Patient Language: Portuguese Stand Alone Forms: General Discharge Information Follow-up/Referrals: Kvng Powell MD [Physician] - Discharge Medications: Continued fluoxetine 10 mg capsule 10 mg PO DAILY Qty: 30 1RF PNV cmb#[id number]-ferrous fumarate-FA [] 28 mg iron- 800 mcg tablet 1 tablet PO DAILY buspirone 5 mg tablet 10 mg PO BID PRN (Reason: anxiety) Qty: 180 3RF Date of admission: 12/01/24 12:44 Primary Care Provider: PHYSICIAN,[employer] DIVISION DIRECTOR Admitting Provider: Kvng Powell Attending physician on admission: Kvng Powell Condition: Stable
--- NOTE | 2024-12-02 12:20 | PM.OBPNVD ---
OB - PN: Subj Subjective Date/time seen: 12/02/24 12:20 Patient comments: no complaints, pain well controlled, incisional pain, tolerating diet and flatus present OB - PN: Obj Data Labs 12/02/24 04:09 Labs: Laboratory Results - last 24 hr 12/01/24 12/02/24 12:59 04:09 WBC 12.1 H RBC 4.11 L Hgb 11.9 L 10.2 L Hct 36.2 L 31.6 L MCV 88.1 MCH 29.0 MCHC 32.9 RDW 14.3 Plt Count 260 MPV 11.3 H Immature Gran % (Auto) 0.4 Neut % (Auto) 73.8 H Lymph % (Auto) 18.5 [place] % (Auto) 6.6 Eos % (Auto) 0.5 Baso % (Auto) 0.2 Lymph # (Auto) 2.24 [place] # (Auto) 0.8 H Eos # (Auto) 0.1 Baso # (Auto) 0.0 Abs Immat Gran (auto) 0.05 H Absolute Neuts (auto) 9.0 H Absolute Nucleated RBC 0.000 Nucleated RBC % 0.0 Syphilis IgG/IgM Ab Non-reactive Blood Type A Positive Antibody Screen Negative OB - PN A/P Plan day: 1 Plan: routine care Comments: No problems, routine care Time Spent With Patient Time: Total time spent is greater than 50% in coordination of care (as documented) at patient's floor/unit and/or counseling patient: Exam Const: General: comfortable, no acute distress and alert Resp: Effort & Inspection: normal respiratory effort Auscultation: no crackles, no rales and no rhonchi Cardio: Rate: regular rate Heart sounds: no click, no murmurs and no rubs GI: Inspection: non-distended GI Palp: No Tenderness to palpation present (GI) Auscultation: normal bowel sounds Other: Incision - CDI Extrem: General: normal to inspection, no pedal edema and no calf tenderness
--- NOTE | 2024-12-02 12:35 | PC.NURSE ---
Assisted mother to put infant to breast after circumcision. Mom has been using the nipple shield most of the time and has more pain when she latches without the shield. We attempted to latch on the left breast in cross cradle hold. Mom was educated on positioning and alignment. Baby was unable to latch without the shield so we placed it on the nipple. Mom was shown how to roll the shield to help draw the nipple in. Baby latched easily with the shield. His lower lip was flanged out and mom was shown how to check for and fix a rolled lip. Educated parents on observing for the chin to be on the breast and the nose close throughout the entire feeding. Discussed the need to pump several times a day while initiating a milk supply and using the shield. Mom is encouraged to use the nipple shield if it is working with instruction on how to wean if desired. Mom is educated on use of lanolin for sore nipples. Her nipples are red with skin intact. Father present and supportive. Patient is instructed to call out if she needs assistance with switching to the right breast. RN updated.
[2024-12-04 11:39] VITALS: BP 123/74; PULSE 68; RESP 18; TEMP 36.9; O2SAT 100
== END 2024-12-02 15:14 | disposition home or self-care (01) | DRG 807 ==
LOC: ANHLDR 13:18 → ANHOB2 15:32
PROVIDERS: Advanced Practice Midwife; Admitting Provider Obstetrics & Gynecology; Visit Provider Obstetrics & Gynecology
DX: O62.3 Precipitate labor (principal); Z37.0 Single live birth; Z3A.38 38 weeks gestation of pregnancy; O69.81X0 Labor and delivery complicated by cord around neck, without compression, not applicable or unspecified
CPT/HCPCS: 36415; 85014; 85018; 85025; 86593; 86850; 86900; 86901; A9270; G0378; G0379; J2590; J3010

== ENCOUNTER 2025-01-08 17:53 | Emergency (ER) | payer OTHER, MEDICAID, SELFPAY ==
--- OUTSIDE RECORDS SUMMARY | 2025-01-08 17:55 | XMS_ITS ---
Author Organization [facility] Address [address] [place] [address] [address] [facility] [address] [place] [address] Care Team Providers Care Miniature Model Maker Name Role Phone Cynthia Seyd Unavailable [phone] Chau Campbell Unavailable [phone] Social History Sex Assigned At : Social History Observation Description Sex Assigned At Female Encounters Encounter Location Date Provider Diagnosis [facility] [employer] [address] [facility] [address] [place] [address] 05/10/2024 Chau Campbell Plan Of Treatment No Information Progress Notes * EZ MAGALLON MDOB:2005 (19 yo F)Acc No.[id number]:05/10/2024 Patient: Jerome EZ BOB Provider: Jerome Campbell LCPC :2005 A ge:18 Y S ex:Female Date:05/10/2024 Address:[address] [facility] [place] [address] Data: * Chief Complaints: * Assessment: Plan: * Treatment: * Billing Information: * Visit Code: * Procedure Codes: * Electronic signature of Shasta Campbell LCPC on 01/08/2025 at 05:54 PM CDT Sign off status: Pending Signatures: No Ad Hoc Signature Added * Provider: Jerome Campbell LCPC Date: 1 07/11/2023 Generated for Benito shaw/Jeni/eTleandrosmitting on: 0 01/08/2025 05:54 PM CDT
--- OUTSIDE RECORDS SUMMARY | 2025-01-08 17:55 | XMS_ITS | Clinical Summary ---
Author Organization [facility] Address [address] [place] [address] Phone Care Team Providers Care Generator Man Name Role Phone Gareth Stevens MD Primary Care Provider [phone] Allergies No known active allergies Medications ondansetron [...] on file Legal Sex Female 11:08 PM DIRECTOR OF PERIOPERATIVE SERVICES Gender Identity Not on file Sexual Orientation Not on file Last Filed Vital Signs Vital Sign Reading Time Taken Comments Blood Pressure 110/71 04/20/2023 11:15 PM DIRECTOR OF PERIOPERATIVE SERVICES Pulse 129 04/20/2023 11:15 PM DIRECTOR OF PERIOPERATIVE SERVICES Temperature 37.1 C (98.7 F) 04/20/2023 8:59 PM DIRECTOR OF PERIOPERATIVE SERVICES Respiratory Rate 18 04/20/2023 11:15 PM DIRECTOR OF PERIOPERATIVE SERVICES Oxygen Saturation 98% 04/20/2023 11:15 PM DIRECTOR OF PERIOPERATIVE SERVICES Inhaled Oxygen Concentration - - Weight 82.6 kg (182 lb) 04/20/2023 8:59 PM DIRECTOR OF PERIOPERATIVE SERVICES Height 167.6 cm (5' 6) 04/20/2023 8:59 PM DIRECTOR OF PERIOPERATIVE SERVICES Body Mass Index 29.38 04/20/2023 8:59 PM DIRECTOR OF PERIOPERATIVE SERVICES Plan of Treatment Health Maintenance Due Date Last Done Comments Hepatitis C Virus (HCV) Screening 2005 SARS-COV-2 Immunization (2023- season) 2024 Pap Smear 2024 Influenza Immunization (#1) 2025 04/11/2015, 1 06/17/2004 Respiratory Syncytial Virus (RSV) Immunization (Adult) (1 [...] to complete this topic Insurance Care Teams Generator Man Relationship Specialty Start Date End Date Gareth Stevens MD [address] [place] [address] PCP - General Family Medicine 04/20/23
--- OUTSIDE RECORDS SUMMARY | 2025-01-08 17:55 | XMS_ITS ---
Author Organization [facility] Address [facility] [address] [facility] [address] [place] [address] Care Team Providers Care Music Ministries Director Name Role Phone Cynthia Syed Unavailable [phone] Chau Campbell Unavailable [phone] Social History Sex Assigned At : Social History Observation Description Sex Assigned At Female Encounters Encounter Location Date Provider Diagnosis [facility] [address] [facility] [address] [place] [address] 05/15/2024 Chau Campbell Plan Of Treatment No Information Progress Notes * EZ MAGALLON MDOB:2005 (19 yo F)Acc No.[id number]:05/15/2024 Patient: Jerome EZ BOB Provider: Jerome Campbell LCPC :2005 A ge:19 Y S ex:Female Date:05/15/2024 Address:[address] , [place] [address] Data: * Chief Complaints: * Assessment: Plan: * Treatment: * Procedure Codes: N STHR NO SHOW THERAPY * Billing Information: * Visit Code: * Procedure Codes: NSTHR NO SHOW THERAPY. * Electronic signature of Shasta Campbell LCPC on 01/08/2025 at 05:54 PM CDT Sign off status: Pending Signatures: No Ad Hoc Signature Added * Provider: Jerome Campbell LCPC Date: 07/16/2023 Generated for Benito shaw/Jeni/Dante on: 0 01/08/2025 05:54 PM CDT
--- OUTSIDE RECORDS SUMMARY | 2025-01-08 17:55 | XMS_ITS | Clinical Summary ---
Author Organization [facility] Address [address] [place] [address] Care Team Providers Care Rehab Aide Name Role Phone Unavailable Primary Care Provider Unavailabl e Source Comments [facility],non-owned Affiliates and Associated Physician Practices is amultiple site organization consisting of ambulatory clinics and hospital sitesin [place], [place], [place] and [place]. This disclosure is being madepursuant to the Care Everywhere program and may not contain all information available regarding this patient. Last updated 18.[facility] Allergies No known active allergies Medications * Be aware that medications may not be up to date on this document. Alwaysverify current medications with the patient. 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 Gender Identity Not on file Sexual Orientation Not on file Last Filed Vital Signs Vital Sign Reading Time Taken Comments Blood Pressure 100/50 07/11/2010 7:33 PM DEPARTMENT CHAIRPERSON Pulse 128 07/11/2010 7:33 PM DEPARTMENT CHAIRPERSON Temperature 37.7 C (99.8 F) 07/11/2010 7:33 PM DEPARTMENT CHAIRPERSON Respiratory Rate 18 07/11/2010 7:33 PM DEPARTMENT CHAIRPERSON Oxygen Saturation 98% 07/11/2010 7:33 PM DEPARTMENT CHAIRPERSON Inhaled Oxygen Concentration - - Weight 24.3 kg (53 lb 9.2 oz) 07/11/2010 4:45 PM DEPARTMENT CHAIRPERSON Height - - Body Mass Index - [...] season) 2024 DEPRESSION SCREENING 06/07/2024 INFLUENZA VACCINE (#1) 2025 ZOSTER VACCINE (1 of 2) 2053 [...] HUNTER Subscriber ID:Not on file (Home) Address: [address] [place] [address] Payer ID:[id number] (NAIC) Type:[facility] Address: [facility] [id number]
--- OUTSIDE RECORDS SUMMARY | 2025-01-08 17:55 | XMS_ITS | Patient Health Record ---
Author Organization [facility] [employer] Address [address] [facility] [address] [place] [address] Care Team Providers Care Still Runner Name Role Phone Cynthia Syed Unavailable [phone] CampbellChau gross Unavailable [phone] Allergies No Known Allergies Reason For Referral No Information Medications Medication SIG (Take, Route, Frequency, Duration) Notes Start Date End Date Status FLUoxetine HCl 20 MG 1 capsule Oral Once a day; Duration: 90 days Active buPROPion HCl ER (XL) 150 MG 1 tablet in the morning Orally Once a day; Duration: 90 days Active [facility] 1.5/30 (28) 1.5 MG-30 MCG (21)/75 MG (7) TABLET *Reorder from [employer] for eRx and Interaction Alerts* 10/15/2023 Active [...] Status Risk Notes Problem Generalized anxiety disorder (35746027) Generalized anxiety disorder (F41.1) Active confirmed Problem Panic disorder (011498522) Panic disorder [episodic paroxysmal anxiety] without agoraphobia (F41.0) Active confirmed Problem MDD (major depressive disorder), recurrent episode, moderate (F33.1) Active confirmed Encounters Encounter Location Date Provider Diagnosis [facility] [address] [place] [address] 01/12/2024 Cynthia Syed [facility], [facility] [address] [place] [address] 01/12/2024 Cynthia Syed [facility], [facility] [address] [place] [address] 04/03/2024 Cynthia Syed [facility], [facility] [address] [place] [address] 04/17/2024 Cynthia Syed [facility], [facility] [address] [place] [address] 06/22/2024 Cynthia Syed Generalized anxiety disorder F41.1 and MDD (major depressive disorder), recurrent episode, moderate F33.1 [facility], [facility] [address] [place] [address] 05/15/2024 Chau Campbell [facility], [facility] [address] [place] [address] 01/25/2024 Chau Campbell Generalized anxiety disorder F41.1 [facility], [facility] [address] [place] [address] 09/08/2024 Chau Campbell [facility], [facility] [address] [place] [address] 02/14/2024 Cynthia Syed Generalized anxiety disorder F41.1 ; Panic disorder [episodic paroxysmal anxiety] without agoraphobia F41.0 and MDD (major depressive disorder), recurrent episode, moderate F33.1 [facility], [facility] [address] [place] [address] 03/08/2024 Cynthia Syed [facility], [facility] [address] [place] [address] 03/10/2024 Cynthia Syed Generalized anxiety disorder F41.1 ; Panic disorder [episodic paroxysmal anxiety] without agoraphobia F41.0 and MDD (major depressive disorder), recurrent episode, moderate F33.1 [facility], [facility] [address] [place] [address] 04/07/2024 Cynthia Syed [facility], [facility] [address] [place] [address] 01/12/2024 Cynthia Syed Generalized anxiety disorder F41.1 ; Panic disorder [episodic paroxysmal anxiety] without agoraphobia F41.0 and MDD (major depressive disorder), recurrent episode, moderate F33.1 Assessments Encounter Date Diagnosis (ICD Code) Assessment Notes Treatment Notes Treatment Clinical Notes Section Notes 01/25/2024 Generalized anxiety disorder (ICD-10 - F41.1) [...] Client was born and raised in the [facility] to parents who have been 20 [...] anxiety] without agoraphobia (ICD-10 - F41.0) 02/14/2024 MDD (major depressive disorder), recurrent episode, [...] side effects persist, please contact the office. 01/12/2024 Other Stable, continue current medications. Refills [...] suspended for an argument she had with medical technologist generalist. Moreover has been stressed this past week due to planning birthday constitution party for two year old daughter. Session accordingly [...] Client was born and raised in the [facility] to parents who have been 20 [...] Insured Coverage Start Date Coverage End Date [facility] [address] [place] [address] [id number] CHELY MAGALLON Child - Insured has Financial Responsibility Medical (General) History Medical History History ICD Code Problems: Generalized anxiety disorder Panic disorder
--- OUTSIDE RECORDS SUMMARY | 2025-01-08 17:55 | XMS_ITS | Clinical Summary ---
Author Organization [address] Address [address] [place] [address] Care Team Providers Care Store Clerk Checker Name Role Phone Dillon Suero MD Primary [...] MOUTH EVERY DAY FOR 90 DAYS Active Active Problems Estimated Date of Delivery Comme nts Yes 12/11/2024 No known active problems Encounters Date Type Department Care Team Description 11/18/2024 7:30 PM CDT Office Visit 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 Gender Identity Not on file Sexual Orientation [...] Regular Well Visit/Exam 18-64 2021 Influenza Vaccine (#1) 2025 5, 04/11/2015, 04/17/2005 DTaP/Tdap/Td Vaccine (7 - Td or Tdap) 02/07/2025 02/07/2015, 01/10/2008, 04/17/2005, Additional history exists Hepatitis B Screening Completed 02/13/2004 , 02/13/2004, 2003, Additional history exists Pneumococcal vaccine <65 Aged Out 004, 2003, 2003 No longer eligible based on patient's age to complete this topic Varicella Vaccines Completed 01/10/2008, 04/17/2005 HPV Vaccines Completed 08/15/2015, 10/2014, 02/07/2015 Meningococcal Vaccine Completed 02/13/2021, 015 Meningococcal B Vaccine Completed 03/18/2021, 02/13 Insurance [facility] CHOICE PLUS [employer] OOS Care Teams Store Clerk Checker Relationship Specialty Start Date End Date Dillon Suero MD PCP - General Pediatrics 08/01/19
--- OUTSIDE RECORDS SUMMARY | 2025-01-08 17:55 | XMS_ITS | Referral Summary ---
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
[2025-01-08 17:58] VITALS: BP 126/74; PULSE 67; RESP 16; TEMP 37.3; O2SAT 100
--- NOTE | 2025-01-08 18:01 | ED.EAR ---
HPI - Ear Problem General Chief complaint: Ear Stated complaint: Ears Time Seen by Provider: 01/08/25 18:04 Source: patient and RN notes reviewed Mode of arrival: ambulatory Limitations: no limitations History of Present Illness HPI Narrative: 19-year-old female presents with concern for left ear pain for 3 days. Reports the pain is radiating towards her jaw. She denies sore throat, runny nose, stuffy nose, fever. Denies drainage from the ear. She is currently breast feeding. She has not taken any medication for her symptoms. MD Complaint: ear pain Related Data Home Medications ?Medication ?Instructions ?Recorded ?Confirmed ?Last Taken ?Type norethindrone 1 mg-ethinyl tablet 01/08/25 Unknown History estradiol 20 mcg (21)-iron 75 mg (7) tablet (Aurovela Fe 1-20 (28)) Allergies Allergy/AdvReac Type Severity Reaction Status Date / Time No Known Allergies Allergy Verified 01/08/25 18:02 Review of Systems Review of Systems: CONSTITUTIONAL: Denies malaise, chills, sweats, or fever. EYES: Denies visual changes, redness, or discharge. ENT: Denies rhinorrhea, congestion, sinus pain, and sore throat. Reports left ear pain CARDIOVASCULAR: Denies chest pain, palpitations, or edema. RESPIRATORY: Denies cough. Denies dyspnea. GASTROINTESTINAL: Denies abdominal pain, nausea, vomiting, diarrhea SKIN: Denies rash or itching. MUSCULOSKELETAL: Denies myalgia. NEUROLOGIC: Denies headache. All systems reviewed & are unremarkable except as noted in HPI and below PMFSH Past Medical History Medical History Anxiety COVID-19 Ear infection Strep throat Surgical History Surgical History No pertinent past surgical history Family History Family History (Updated 11/11/24 @ 13:43 by Hina Pastor RN) Mother Kidney disease, chronic, end stage on dialysis Father Depression Hypertension Grandparent Asthma Grandparent Cancer Social History Social History Smoking status: Never smoker Second hand tobacco smoke exposure: No Alcohol intake: never Substance use: never Do You Feel Safe in your Home?: Yes Lack of Transportation: No Lack of Food: Never True Current Housing: I Have Housing Concerned About Future Housing: No Difficulty Paying Gas/Electric Bills: No Difficulty Paying for Meds: No Currently Unemployed: No Education: High School Diploma/GED Difficulty w/ Childcare or Family Care: No Living arrangements: with family Gender identity (if verbalized by the patient): Female Sexual Orientation (if Verbalized by the Patient): Straight or Heterosexual Spiritual care concerns: No Agree to blood products: Yes Comments At time of signature, agree with nursing past medical, surgical, social and family history. There is no relevant family history pertinent to the presenting complaint Exam Narrative: GENERAL: Well-appearing, well-nourished, and in no acute distress. HEAD: Normocephalic EYES: PERRLA, conjunctivae clear ENT: Nares clear. Mucous membranes moist. TM pearly freedman with sharp light reflex bilaterally; no tragal tenderness, EAC unremarkable. No post or pre-auricular erythema, induration, or warmth noted. Oropharynx not erythematous without lesions. Tonsils not enlarged and without exudate, no drooling, no hoarseness, no trismus, uvula midline. NECK: Supple. No lymphadenopathy CHEST: Clear to auscultation, breath sounds equal. No wheezing, rhonchi, rales, or stridor. No respiratory distress, speaks in full sentences. HEART: Regular rate and rhythm. No murmur heard. SKIN: Warm, dry, no rash. NEURO: Alert and oriented x3. PSYCH: Normal mood and affect Course Course Emergency Course: Patient is aware of diagnosis, understands and agrees to treatment plan. Anticipatory guidance given. Patient agrees to follow-up as directed and is aware of reasons to seek care at the emergency department. Portions of this record may have been created with voice recognition software Level of Care: Express Care Visit Vital Signs Vital signs: Reviewed. Medical Decision Making MDM Narrative Medical decision making narrative: I evaluated this in the [facility] care. History is obtained from patient who is an independent historian and physical exam was performed.? Available medical records were reviewed. ? Exam findings and relevant testing show no acute concerns or changes; patient is non-toxic appearing and is in no distress. Differential diagnosis considered: Acuña virus, strep pharyngitis, allergic rhinitis, upper respiratory tract infection, sinusitis, rhinosinusitis, nasopharyngitis. viral pharyngitis, otitis media, otitis externa, otitis effusion, pre/post auricular cellulitis, mastoiditis, cerumen impaction, foreign body. Exam findings show no acute concerns or changes; patient is non-toxic appearing and is in no distress. Patient is appropriate for outpatient treatment and follow-up. ? Differential diagnosis and treatment plan were discussed with the patient. Patient agrees with discussion and after shared medical decision making agrees with plan of care. All questions were answered to the patient's satisfaction. Patient is appropriate for outpatient treatment and follow-up. Critical Care Time Critical Care Time Critical Care Time: No Discharge Plan Discharge Clinical Impression: Ear ache Patient Disposition: Home Condition: Stable Instructions: Earache (ED) Additional Instructions: Take pseudoephedrine as directed. Recommend antihistamine such as Benadryl at night time and Zyrtec or Crystal during the day until symptoms improve Flonase nasal spray, 2 sprays in each nostril once daily until symptoms improve Also, recommend symptomatic treatment includes: rest, fluids, and increase humidity of the air at home. Recommend Acetaminophen as directed on the bottle to reduce fever, pain Please schedule a follow-up visit with your personal physician for further evaluation and treatment within 3-5days. If your symptoms persist, change or worsen significantly before you can contact your personal physician then please, without delay, go to the emergency department for further evaluation. Patient Language: Citizen [place] Prescriptions: New pseudoephedrine HCl [12 Hour Decongestant] 120 mg tablet extended release 120 mg PO Q12H PRN (Reason: nasal congestion) Qty: 20 0RF No Action norethindrone-e.estradiol-iron [Aurovela Fe 1-20 (28)] 1 mg-20 mcg (21)/75 mg (7) tablet fluoxetine 10 mg capsule 10 mg PO DAILY Qty: 30 1RF buspirone 5 mg tablet 10 mg PO BID PRN (Reason: anxiety) Qty: 180 3RF Follow-up/Referrals: PHYSICIAN,KNIT GOODS MENDER [Primary Care Provider] - Time of Disposition: 18:08
== END 2025-01-08 18:11 | disposition home or self-care (01) ==
PROVIDERS: Emergency Provider Nurse Practitioner
DX: H92.02 Otalgia, left ear (principal); F41.9 Anxiety disorder, unspecified; Z86.16 Personal history of COVID-19
CPT/HCPCS: 99213; G0463